=== PATIENT | female | born 1945 | race Hispanic/Latino ===

== ENCOUNTER 2017-04-29 18:42 | Inpatient (IN) | payer MEDICARE, OTHER ==
[~2017-04-29] VITALS: Ht 157.5 cm; Wt 56.9 kg
[~2017-04-29 18:42] MED LIST: PANCRELIPASE 51 EACH PO; PANTOPRAZOLE SO40 MG PO; Z.0.CENTRUM SILVER1 PO; Z.0.NEXIUM40 MG PO; [UNRECOGNIZED DRUG - CODE] PO
--- OUTSIDE RECORDS SUMMARY | 2017-04-29 18:45 | XMS REPORT | Clinical Summary ---
Author Author [facility] Address Unknown Phone Unavailable Care Team Providers Care Navigation Teacher Name Role Phone Catherine Donis MD PCP Allergies Active Allergy Reactions Severity Noted Date Comments Cefazolin 04/02/2016 Penicillins 04/02/2016 Current Medications Prescription Sig. Disp. Refills Start End Date Status Date multivitamins & Take by mouth daily. Active minerals-ferrous gluconate 9 mg iron/15 mL liquid Ca carb-D3-mag Take by mouth. Active ox-bwi-aoqs-Zn (CALTRATE + D3 PLUS MINERALS) 300 mg-800 unit -25 mg-0.5 mg tablet Bacillus coagulans Take by mouth. Active (PROBIOTIC, B. COAGULANS,) 10 billion cell capsule,delayed release(DR/EC) ciprofloxacin (CIPRO) 500 Take 500 mg by mouth 3 Active MG tablet (three) times a week. ZENPEP 5,000-17,000 07/13/19 Active -27,000 unit 17 capsule,delayed release(DR/EC) traMADol (ULTRAM) 50 mg Take 50 mg by mouth every 08/30/19 Discontin tablet 6 (six) hours as needed. 17 ued predniSONE (DELTASONE) 20 Take 1 tablet (20 mg 20 tablet 0 08/30/19 09/09/19 mg tablet total) by mouth 2 (two) 17 17 times a day for 10 days. Active Problems Problem Noted Date Right carpal tunnel syndrome 03/27/2017 Overview: EMG/NCS 11/06/16. Complex regional pain syndrome type 2 of right upper extremity 11/01/2016 Closed displaced fracture of base of fifth metacarpal bone 03/28/2016 Encounters Date Type Specialty Care Team Description 08/29/2016 Office Visit Orthopedic Surgery Kiki Palma MD Right shoulder pain, unspecified chronicity (Primary Dx); Complex regional pain syndrome type 1 of right upper extremity 05/15/2016 Office Visit Orthopedic Surgery Silvestre Banks MD Closed displaced fracture of base of fifth metacarpal bone of right hand with routine healing, subsequent encounter (Primary Dx) 05/01/2016 Office Visit Orthopedic Surgery Silvestre Banks MD Closed displaced fracture of base of fifth metacarpal bone of right hand with routine healing, subsequent encounter (Primary Dx) after 04/28/2016 Social History Tobacco Use Types Packs/Day Years Used Date Never Smoker Sex Assigned at Date Recorded Not on file Last Filed Vital Signs Vital Sign Reading Time Taken Blood Pressure - - Pulse - - Temperature - - Respiratory Rate - - Oxygen Saturation - - Inhaled Oxygen - - Concentration Weight 53.5 kg (118 lb) 08/29/2016 2:03 PM CDT Height 157.5 cm (5' 2") 08/29/2016 2:03 PM CDT Body Mass Index 21.58 08/29/2016 2:03 PM CDT Plan of Treatment Health Maintenance Due Date Last Done Comments COLONOSCOPY 02/19/1994 MAMMOGRAM 02/19/1994 ZOSTER VACCINE 2004 PNEUMOCOCCAL 02/19/2009 POLYSACCHARIDE VACCINE AGE 65 AND OVER PNEUMOCOCCAL-13 02/19/2009 INFLUENZA VACCINE 09/11/2016 Procedures Procedure Name Priority Date/Time Associated Diagnosis Comments MA ARTHROCENTESIS Routine 08/29/2016 Complex regional pain Results for this ASPIR&/INJ MAJOR JT/BURSA 2:49 PM CDT syndrome type 1 of right procedure are in the W/O US upper extremity results section. after 04/28/2016 Results * Large Joint Arthrocentesis (08/29/2016 2:49 PM) Narrative Kiki Palma MD 08/29/20162:49 PM Large Joint Arthrocentesis Supporting Documentation Indications: pain Procedure Details Location: shoulder - R glenohumeral Right side: Approach: superior Right shoulder medications administered: 6 mg betamethasone acet,sod phos 6 mg/mL; 2 mL lidocaine 10 mg/mL (1 %) (The patient will apply ice to the injected area today and use OTC meds as needed for injection pain. We discussed potential risks to include infection, pain, ineffectuality, fat atrophy, skin pigmentation loss, and need for more treatment.) * XR Shoulder 2+ Vw Right (08/29/2016 2:16 PM) Specimen Performing Laboratory [facility] [address] [place] [address] Narrative Radiographs of the right shoulder, 3 views, AP, Y and axillary lateral views: No fracture, no dislocation, normal alignment, preserved glenohumeral joint space, no pathologic lesion, no greater tuberosity cysts, preserved acromiohumeral interval, type II acromion, AC joint degenerative changes * XR Hand 3+ Vw Right (05/15/2016 11:12 AM) Only the most recent of 2 results within the time period is included. Specimen Per[facility] [address] [place] [address] Narrative PA, lateral, oblique x-rays are done of the right hand demonstrate a healed fracture of the right fifth metacarpal base.This fracture is in satisfactory position. after 04/28/2016 Insurance Payer Benefit Subscriber ID Type Phone Address Plan / Group MEDICARE MEDICARE xxxxxxxxxx Medicare [place], [place] PART A AND B xxxxxxxxx [place] [address]
--- OUTSIDE RECORDS SUMMARY | 2017-04-29 18:45 | XMS REPORT ---
Author Author [facility] Address Unknown Phone Unavailable Care Team Providers Care Fire Alarm Operator Name Role Phone DEJUAN WESTBROOK Unavailable Unavailable ROSALES NICHOLSON Unavailable Unavailable Problems This patient has no known problems. Allergies, Adverse Reactions, Alerts This patient has no known allergies or adverse reactions. Medications This patient has no known medications. Results Test Description Test Time Test Comments Text Results Atomic Results Result Comments CHEST 2 VIEWS [place] [address] Patient Name: DEYVI KHAN MR #: [id number] : 1945 Age/Sex: 71/F Req #: [id number] Adm Physician: Ordered by: DEJUAN WESTBROOK MD Report #: [id number] Location: ER Room/Bed: Procedure: [id number] DX/CHEST 2 VIEWS Exam Date: Exam Time: REPORT STATUS: Signed EXAMINATION: Chest, CHEST 2 VIEWS INDICATION : Cough. COMPARISON: Chest 2 views 01/26/2014 FINDINGS: LINES: None. Heart: Normal cardiac silhouette. Vascular: The pulmonary vasculature is within normal limits. Atherosclerotic calcifications of the aortic arch. Mediastinum: No mediastinal, hilar, or axillary mass or lymphadenopathy. Lungs: No parenchymal mass. No focal consolidation. Bibasilar atelectasis. Pleura: No pleural effusion. No pneumothorax. Bones: No acute osseous abnormality. Degenerative changes of the thoracic spine. Soft tissues: Normal. Impression: No acute radiographic abnormality. Signed by: Dr. Radha Damico M.D. on 2016 5:58 PM Dictated By: RADHA DAMICO MD 57 Transcribed By: LANCE on 11/11/161757 COPY TO: DEJUAN WESTBROOK MD CT ABDOMEN/PELVIS WOW [place] [address] Patient Name: DEYVI KHAN MR #: [id number] : 1945 Age/Sex: 71/F Req #: [id number] Adm Physician: Ordered by: ROSALES NICHOLSON MD Report #: [id number] Location: CT Room/Bed: __ Procedure: [id number] CT/CT ABDOMEN/PELVIS WOW Exam Date: 09/28/16 Exam Time: 1310 REPORT STATUS: Signed PROCEDURE: CT ABDOMEN T PELVIS W/WO CONTRAST TECHNIQUE: The abdomen and pelvis were scanned utilizing a multidetector helical scanner from the diaphragm to the lesser trochanter before and after the IV administration of 100 cc of Isovue 370 and the oral administration of water. Coronal and sagittal multiplanar reformations were obtained. COMPARISON: [facility], CT, CT ABDOMEN T PELVIS W/WO CONTRAST, 01/13/2009, 17:37. [facility], CT, CT ABDOMEN AND PELVIS WITH CONTRAST, 03/16/2010, 10:54. [facility], CT, CT ABDOMEN/PELVIS WOW, 01/16/2013, 9: 02. [facility], CT, CT ABDOMEN/PELVIS WOW, 01/26/2014, 8:55. [facility], CT, CT ABDOMEN/PELVIS W, 09/28/2015, 10:31. INDICATIONS: History of pancreatic cancer in 2009 status post distal pancreatectomy. Weight loss, appetite loss and abdominal pain for 3 weeks FINDINGS: LOWER THORAX: Stable linear opacity in the posterior left lower lobe, technology assistant with scarring. Lung bases are otherwise clear. Atherosclerotic calcification of the coronary arteries.. HEPATOBILIARY: Normal hepatic size and contour. No focal hepatic lesions. The no intrahepatic biliary ductal dilation. Stable mild prominence of the common bile duct, which measures approximately 9 mm at the june hepatis. No intraluminal filling defects. Cholecystectomy clips. 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 PANCREAS: Stable postoperative changes of distal pancreatectomy. Remaining pancreatic head and uncinate process are unremarkable, without ductal dilation, focal lesion, peripancreatic stranding or well defined fluid collections. No abnormal calcifications. ADRENALS: No adrenal nodules. KIDNEYS/URETERS: Symmetrical renal enhancement. No hydronephrosis, stones, or solid mass lesions. PELVIC ORGANS/BLADDER: Bladder is unremarkable. No focal lesions or wall thickening. Uterus is absent. No adnexal masses.. PERITONEUM / RETROPERITONEUM: No free air or fluid. LYMPH NODES: No lymphadenopathy. VESSELS: Celiac trunk, superior and inferior mesenteric, and bilateral renal arteries are patent. Portal, superior mesenteric veins are patent. GI TRACT: Visualized bowel shows no dilation or obstruction. No wall thickening. Stomach is unremarkable. Scattered diverticula in the distal descending and sigmoid colon, without diverticulitis. BONES AND SOFT TISSUES: No acute bony abnormalities. No lytic lesions. Soft tissues are grossly unremarkable. IMPRESSION: 1. No acute abdominopelvic abnormalities. 2. Stable postoperative changes of distal pancreatectomy, without CT evidence of recurrent or metastatic pancreatic neoplasm. 3. Stable mild dilation of the common bile duct, likely reflecting post cholecystectomy status. Fany Morales M.D. Dictated by: aFny Morales M.D. on 09/28/2016 at 14:50 Electronically approved by: Fany Morales M.D. on 09/28/2016 at 14:50 Dictated By: FANY MORALES MD [id number] Transcribed By: GENARO on 09/28/16 1450 COPY TO: ROSALES NICHOLSON MD
[2017-04-29] MEDS ORDERED: ONDANSETRON HCL INJ 2 MG/ML VIAL IV STA (19:54)
[2017-04-29] MEDS ORDERED: DIATRIZOATE MEGL/DIATRIZOA SOD 30 ML BTL PO ONE (20:08)
[2017-04-29 20:15] LABS: BASOPHILS % 0.2 % (0.0-1.0); EOSINOPHILS # (AUTO) 0.2 (0.0-0.4); EOSINOPHILS % 1.3 % (0.0-6.0); HEMATOCRIT 43.5 % (34.2-44.1); HEMOGLOBIN 14.7 g/dL (12.0-16.0); LYMPHOCYTES # (AUTO) 2.7 (1.0-3.2); LYMPHOCYTES % 22.9 % (18.0-39.1); MEAN CORPUSCULAR HGB CONC 33.8 g/dL (31-35); MEAN CORPUSCULAR VOLUME 88.8 fL (81-99); MONOCYTES # (AUTO) 0.8 (0.2-0.8); MONOCYTES % 6.8 % (4.4-11.3); NEUTROPHILS % 68.6 % (38.7-80.0); PLATELET COUNT 444 x10e3/uL (140-360); RED CELL DISTRIBUTION WIDTH 13.3 % (11.7-14.4)
[2017-04-29 20:34] LABS: ALANINE AMINOTRANSFERASE 13 IU/L (0-55); ALKALINE PHOSPHATASE 132 IU/L (40-150); AMYLASE 66 U/L (25-125); ANION GAP 14.2 mmol/L (8-16); BLOOD UREA NITROGEN 19 mg/dL (7-26); BUN/CREATININE RATIO 27 (6-25); CALCIUM 10.4 mg/dL (8.4-10.2); CARBON DIOXIDE 28 mmol/L (22-29); CHLORIDE 100 mmol/L (98-107); EST GLOMERULAR FILTRATION RATE > 60 ML/MIN (60-); GLUCOSE 111 mg/dL (74-118); LIPASE 9 U/L (8-78); POTASSIUM 4.2 mmol/L (3.5-5.1); SODIUM 138 mmol/L (136-145)
[2017-04-29] MEDS ORDERED: SODIUM CHLORIDE 0.9% 50ML 50 ML ONE (21:00)
[2017-04-29] MEDS ORDERED: IOPAMIDOL 370 MG/ML 200 ML INFUS..BTL INJ ONE (21:00)
--- NOTE | 2017-04-29 21:39 | Diagnostic Imaging Report ---
EXAM: CT ABDOMEN AND PELVIS with IV CONTRAST DATE: 04/29/2017 7:54 PM Time stamp on Exam: 2104 hours INDICATION: Mid abdominal pain and history of pancreatic cancer COMPARISON: CT of the abdomen September 28, 2016 TECHNIQUE: The abdomen and pelvis were scanned using a multidetector helical scanner. Coronal and sagittal reformations were obtained. Routine protocol performed. IV Contrast: 100 cc Isovue-370 Oral Contrast: Gastrografin CTDIvol has been reviewed. It is below the limits set by the Radiation Protocol Committee (RPC). FINDINGS: LOWER THORAX: No consolidations LIVER: No masses BILIARY: Cholecystectomy. Stable mild dilation of the common bile duct to 8 mm. SPLEEN: Splenectomy PANCREAS: Partial pancreatectomy of the body and tail. Stable appearance of the pancreatic head without evidence of a mass. ADRENALS: No nodules KIDNEYS: Symmetric perfusion. No enhancing masses. No hydronephrosis. GI TRACT: There are mildly distended loops of small bowel, with scattered areas of bowel wall thickening. Fluid-filled ascending colon. VESSELS: Mild atherosclerotic changes of the abdominal aorta without aneurysm. PERITONEUM/RETROPERITONEUM: No free air or fluid LYMPH NODES: Stable mildly prominent right external iliac chain lymph node measuring 1 cm in short diameter. REPRODUCTIVE ORGANS: The uterus and ovaries are not visualized. BLADDER: Unremarkable SOFT TISSUES: Unremarkable BONES: No suspicious bone lesions. IMPRESSION: Appearance of small and large bowel suggests enterocolitis. Surgical changes of partial pancreatectomy, cholecystectomy and splenectomy. No evidence of metastatic disease. Signed by: Dr. Nury Starkey M.D. on 04/29/2017 9:35 PM
[2017-04-29 22:49] LABS: BILIRUBIN,URINE NEGATIVE (NEGATIVE); CLARITY,URINE CLEAR (CLEAR); COLOR,URINE YELLOW (YELLOW); KETONES,URINE NEGATIVE (NEGATIVE); LEUKOCYTE ESTERASE ,URINE NEGATIVE (NEGATIVE); NITRITE,URINE NEGATIVE (NEGATIVE); PROTEIN,URINE DIPSTICK NEGATIVE (NEGATIVE); URINE UROBILINOGEN 0.2 mg/dL (0.2 - 1)
[2017-04-29 23:00] LABS: BACTERIA,URINE RARE /HPF; EPITHELIAL CELLS,URINE RARE /LPF; RBC,URINE 21-50 /HPF (0-5); WBC,URINE (MAN) 0-5 /HPF (0-5)
[2017-04-29] MEDS ORDERED: LEVOFLOXACIN 500MG/D5W 100ML IV SCH (23:15)
[2017-04-29] MEDS ORDERED: MORPHINE SULFATE 2 MG/ML SYR IV PRN (23:15)
[2017-04-29] MEDS ORDERED: SODIUM CHLORIDE 0.9% 1000ML 1,000 ML ONE (23:29)
[2017-04-29] MEDS: METRONIDAZOLE 500MG/NS 100ML IV SCH (23:31)
[2017-04-29] MEDS: SODIUM CHLORIDE 0.9% 1000ML 1,000 ML IV SCH (23:31)
--- OUTSIDE RECORDS SUMMARY | 2017-04-30 00:14 | XMS REPORT | Clinical Summary ---
Author Author [facility] Address Unknown Phone Unavailable Care Team Providers Care Obstetrician/Gynecologist Name Role Phone Catherine Donis MD PCP Allergies Active Allergy Reactions Severity Noted Date Comments Cefazolin 04/02/2016 Penicillins 04/02/2016 Current Medications Prescription Sig. Disp. Refills Start End Date Status Date multivitamins & Take by mouth daily. Active minerals-ferrous gluconate 9 mg iron/15 mL liquid Ca carb-D3-mag Take by mouth. Active ev-bnw-imru-Zn (CALTRATE + D3 PLUS MINERALS) 300 mg-800 [...] routine healing, subsequent encounter (Primary Dx) after 04/29/2016 Social History Tobacco Use Types Packs/Day Years [...] Procedure Name Priority Date/Time Associated Diagnosis Comments [place] ARTHROCENTESIS Routine 08/29/2016 Complex regional pain Results for this ASPIR&/INJ MAJOR JT/BURSA 2:49 PM CDT syndrome type 1 of right procedure are in the W/O US upper extremity results section. after 04/29/2016 Results * Large Joint Arthrocentesis (08/29/2016 2:49 [...] Right (08/29/2016 2:16 PM) Specimen Performing Laboratory [facility] [address] [place] [address] Narrative Radiographs of the right shoulder, 3 [...] time period is included. Specimen Performing Laboratory [facility] [address] [place] [address] Narrative PA, lateral, oblique x-rays are done of the right hand demonstrate a healed fracture of the right fifth metacarpal base.This fracture is in satisfactory position. after 04/29/2016 Insurance Payer Benefit Subscriber ID Type Phone Address Plan / Group MEDICARE MEDICARE xxxxxxxxxx Medicare [place], [place] PART A AND B x[place] [address]
[2017-04-30] MEDS: ONDANSETRON HCL INJ 2 MG/ML VIAL IV PRN ×3 (00:36→22:11)
[2017-04-30] MEDS ORDERED: CIPRO500 MG PO (02:56)
[2017-04-30] MEDS: METRONIDAZOLE 500MG/NS 100ML IV SCH ×3 (06:40→17:30)
[2017-04-30 08:00] VITALS: BP 99/46
[2017-04-30] MEDS ORDERED: HYDROCODONE/APAP 5MG-325MG TAB PO PRN (09:15)
[2017-04-30 09:22] VITALS: BP 99/46
[2017-04-30 09:41] LABS: BASOPHILS % 0.3 % (0.0-1.0); EOSINOPHILS # (AUTO) 0.1 (0.0-0.4); EOSINOPHILS % 0.9 % (0.0-6.0); HEMATOCRIT 35.4 % (34.2-44.1); LYMPHOCYTES # (AUTO) 2.8 (1.0-3.2); LYMPHOCYTES % 28.5 % (18.0-39.1); MEAN CORPUSCULAR HEMOGLOBIN 30.5 pg (28-32); MEAN CORPUSCULAR HGB CONC 33.9 g/dL (31-35); MEAN CORPUSCULAR VOLUME 89.8 fL (81-99); MONOCYTES # (AUTO) 0.7 (0.2-0.8); MONOCYTES % 7.2 % (4.4-11.3); NEUTROPHILS # (AUTO) 6.2 (2.1-6.9); NEUTROPHILS % 62.9 % (38.7-80.0); PLATELET COUNT 381 x10e3/uL (140-360); RED BLOOD COUNT 3.94 x10e6/uL (3.6-5.1); RED CELL DISTRIBUTION WIDTH 13.3 % (11.7-14.4)
[2017-04-30] MEDS: SODIUM CHLORIDE 0.9% 1000ML 1,000 ML IV SCH (09:50)
[2017-04-30 10:09] LABS: ALANINE AMINOTRANSFERASE 16 IU/L (0-55); ALBUMIN 3.1 g/dL (3.5-5.0); ALKALINE PHOSPHATASE 105 IU/L (40-150); ANION GAP 10.8 mmol/L (8-16); BLOOD UREA NITROGEN 14 mg/dL (7-26); BUN/CREATININE RATIO 24 (6-25); CALCIUM 8.5 mg/dL (8.4-10.2); CARBON DIOXIDE 25 mmol/L (22-29); CHLORIDE 104 mmol/L (98-107); CREATININE, SERUM 0.59 mg/dL (0.57-1.11); EST GLOMERULAR FILTRATION RATE > 60 ML/MIN (60-); GLUCOSE 117 mg/dL (74-118); POTASSIUM 3.8 mmol/L (3.5-5.1); SODIUM 136 mmol/L (136-145)
--- NOTE | 2017-04-30 10:58 | History and Physical ---
Cris López is a 72-year-old female who presented with abdominal pain, nausea, and subsequently was seen in the ER, and subsequently admitted for further evaluation and treatment. HISTORY OF PAST ILLNESSES: History of having had a Whipple procedure in 2010. The patient had cancer of the pancreas. The patient has remained in complete remission now for 7 years. The patient had postoperative adjuvant chemotherapy. SOCIAL HISTORY: Noncontributory. FAMILY HISTORY: Noncontributory. ALLERGIES: NONE. MEDICATIONS: At this time consist of: 1. Normal saline. 2. Levaquin. 3. Metronidazole. 4. Tylenol with codeine. REVIEW OF SYSTEMS HEENT: Normal. CARDIAC: Normal. RESPIRATORY: Normal. GI: History of cancer of the pancreas for which she had Whipple procedure in 2010. PHYSICAL EXAMINATION GENERAL: A moderately developed female. NECK: No palpable adenopathy. HEART: Within normal limits. LUNGS: Clear. ABDOMEN: Obese. Midline scar of surgery seen. RECTAL: Vaginal examination deferred. BUILDING ILLUMINATING ENGINEER: Essentially normal. EXTREMITIES: Essentially normal. CBC shows a slightly high white count of 11,600 and slightly high platelets of 444,000. Chemistry is essentially normal with normal amylase of 66 and normal lipase of 9. The patient's imaging shows a CT scan of the abdomen which shows the patient to have small and large bowel enterocolitis. IMPRESSION 1. Status post Whipple procedure for cancer of the pancreas in 2010, in complete remission. 2. Postoperative adjuvant chemotherapy. 3. Leukocytosis. 4. Enterocolitis. PLAN: Have surgical and GI consultation. Aggressive antibiotic therapy, hydration, antiemetics, pain medications. ROSALES NICHOLSON MD Job#: [id number] [place]
[2017-04-30] MEDS ORDERED: SODIUM CHLORIDE 0.9% 500ML 500 ML IV ONE (11:15)
[2017-04-30 12:00] VITALS: BP 109/61
[2017-04-30] MEDS: POTASSIUM CHLORIDE 10 MEQ in DEXTROSE 5%/0.45% SOD CHL 1,000 ML IV SCH (12:12)
[2017-04-30] MEDS: HYDROMORPHONE 1MG/1ML INJ IV PRN ×2 (14:21→22:11)
[2017-04-30 16:00] VITALS: BP 98/60
[2017-04-30 19:30] VITALS: BP 110/68
[2017-04-30] MEDS: LEVOFLOXACIN 500MG/D5W 100ML 100 ML IV SCH (22:03)
[2017-04-30] MEDS: METRONIDAZOLE 500MG/NS 100ML 100 ML IV SCH (23:45)
[2017-05-01] VITALS (8 sets, daily range): BP systolic 123–153; BP diastolic 57–77
[2017-05-01] MEDS ORDERED: ONDANSETRON HCL INJ 2 MG/ML VIAL IV STA (00:35)
[2017-05-01] MEDS: POTASSIUM CHLORIDE 10 MEQ in DEXTROSE 5%/0.45% SOD CHL 1,000 ML IV SCH ×2 (01:24→14:55)
[2017-05-01] MEDS: HYDROMORPHONE 1MG/1ML INJ IV PRN ×2 (04:32→15:12)
[2017-05-01] MEDS: ONDANSETRON HCL INJ 2 MG/ML VIAL IV PRN ×2 (04:32→15:13)
[2017-05-01] MEDS: METRONIDAZOLE 500MG/NS 100ML 100 ML IV SCH ×3 (05:52→18:03)
--- NOTE | 2017-05-01 07:30 | Diagnostic Imaging Report ---
PROCEDURE:ABDOMEN ACUTE SERIES W/PA CXR COMPARISON:CT abdomen and pelvis 04/29/2017. INDICATIONS:ABDOMEN PAIN FINDINGS: CHEST: Lungs are well-expanded and without focal consolidation, pleural effusion, or pneumothorax. Tortuosity and atherosclerotic calcification of the thoracic aorta. Normal heart size. No overt pulmonary edema. BOWEL PATTERN: Interval migration of enteric contrast material ingested for CT abdomen and pelvis 04/29/2017 to the colon. Mild dilatation of several loops of small bowel in the midabdomen to a maximum caliber of 3.5 cm. Multiple sigmoid diverticula. No adrianna pneumoperitoneum on the upright radiograph. Surgical clips related to prior cholecystectomy. SOFT TISSUES: No focal findings. BONES: No acute osseous abnormality. CONCLUSION: No acute cardiopulmonary abnormality. Interval migration of enteric contrast material to the colon with mild nonspecific small bowel dilatation. No pneumoperitoneum. Dictated by: Daniel Jang M.D. on 05/01/2017 at 7:31 Electronically approved by: Daniel Jang M.D. on 05/01/2017 at 7:31
[2017-05-01] MEDS: PROMETHAZINE 12.5MG/ NACL 0.9% 12.5 MG/50 ML BAG IV PRN (19:39)
[2017-05-01] MEDS: LEVOFLOXACIN 500MG/D5W 100ML 100 ML IV SCH (23:00)
[2017-05-02] VITALS: BP 111/53
[2017-05-02] MEDS: POTASSIUM CHLORIDE 10 MEQ in DEXTROSE 5%/0.45% SOD CHL 1,000 ML IV SCH ×2 (00:59→17:43)
[2017-05-02 04:00] VITALS: BP 126/58
[2017-05-02 08:00] VITALS: BP 125/61
--- NOTE | 2017-05-02 14:58 | Diagnostic Imaging Report ---
PROCEDURE: X-RAY UPPER GI SERIES WITH SMALL BOWEL FOLLOW-THROUGH TECHNIQUE:Multiple fluoroscopic spot images were acquired during the dynamic evaluation of the esophagus, stomach, and duodenum after the administration of effervescent crystals and thin and thick barium. The images were obtained in the upright and supine positions from multiple obliquities. Additional oral contrast was administered. Serial overhead images were acquired. Spot compression images of the distal small bowel and cecum were obtained. COMPARISON: CT abdomen and pelvis 04/29/2017. INDICATIONS: ABDOMEN PAIN/SMALL BOWEL OBSTRUCTION FINDINGS: ESOPHAGUS: Motility: Within normal limits. Mucosa: Unremarkable. Distensibility: Normal. GASTROESOPHAGEAL JUNCTION: No evidence of hiatal hernia. GASTROESOPHAGEAL REFLUX: None observed. STOMACH: Normally distensible and demonstrates normal contours and mucosal pattern. DUODENUM: Bulb and sweep are normal. Duodenal-jejunal junction is in the normal expected position. SMALL BOWEL FOLLOW THROUGH: Small bowel loops are normal in caliber and distribution. Spot compression views of the terminal ileum are normal. The transit time was normal. IMPRESSION: No acute radiographic abnormality. Dictated by: Ricki Santana M.D. on 05/02/2017 at 14:58 Electronically approved by: Ricki Santana M.D. on 05/02/2017 at 14:58
[2017-05-02] MEDS: HYDROMORPHONE 1MG/1ML INJ IV PRN (15:20)
[2017-05-02] MEDS: PROMETHAZINE 12.5MG/ NACL 0.9% 12.5 MG/50 ML BAG IV PRN ×2 (15:20→15:59)
[2017-05-02 16:00] VITALS: BP 141/66
[2017-05-02] MEDS: LEVOFLOXACIN 500MG/D5W 100ML 100 ML IV SCH (23:30)
[2017-05-03] VITALS (7 sets, daily range): BP systolic 107–134; BP diastolic 55–74
[2017-05-03] MEDS: POTASSIUM CHLORIDE 10 MEQ in DEXTROSE 5%/0.45% SOD CHL 1,000 ML IV SCH ×2 (01:08→01:09)
[2017-05-03] MEDS ORDERED: MAGNESIUM HYDROXIDE 30 ML UDC PO ONE (02:00)
[2017-05-03] MEDS ORDERED: LIDOCAINE HCL 2% LOCAL INJ 5 ML SDV VIAL INJ ONE (13:49)
[2017-05-03] MEDS ORDERED: EPHEDRINE SULFATE INJ 50 MG/10 ML SYR ONE (13:49)
[2017-05-03] MEDS ORDERED: PROPOFOL IV EMULSION 10 MG/ML 50 ML VIAL ONE (13:49)
[2017-05-03] MEDS ORDERED: PANTOPRAZOLE 40 MG 10ML VIAL IV STA (14:58)
--- NOTE | 2017-05-03 15:11 | Operative Report ---
DATE OF PROCEDURE: May 03, 2017 REFERRING PHYSICIANS: Dr. Chris Donis and Dr. Osmar Barrera. PROCEDURE PERFORMED: Esophagogastroduodenoscopy with biopsies. INDICATIONS FOR ESOPHAGOGASTRODUODENOSCOPY: Upper abdominal pain, nausea and vomiting. MEDICATION: Patient was done under MAC. Please see anesthesiologist's note. PROCEDURE: With the patient in the left lateral decubitus position, the flexible fiberoptic Olympus gastroscope was introduced into the esophagus under direct visualization without any difficulty. The esophagus appeared to be within normal limits. A moderate-sized hiatal hernia was traversed with ease, and the scope was advanced into the stomach. There was some patchy erythema noted overlying both the antrum and the body. An approximately 4 mm ulcer was noted in the distal antrum along the posterior wall without any active bleeding or stigmata or recent hemorrhage. The pylorus was of normal contour and shape, was intubated with ease, and the scope was advanced all the way to the 2nd portion of the duodenum. The scope was then withdrawn slowly, and minute ulcers were noted in the proximal 2nd portion as well as the duodenal bulb without active bleeding or stigmata of recent hemorrhage. The scope was then withdrawn back into the stomach and retroflexed, and the mucosa overlying the fundus and the cardia appeared to be within normal limits. The scope was then straightened out. The stomach was decompressed. The scope was subsequently withdrawn. Patient tolerated the procedure well. IMPRESSION: 1. Normal esophagus. 2. Moderate-sized hiatal hernia. 3. Gastritis. 4. Gastric ulcer, antrum, approximately 4 mm in size without active bleeding or stigmata of recent hemorrhage. 5. Duodenal ulcers, multiple, bulb and proximal 2nd portion without active bleeding. PLAN: Follow up histology. Initiate Protonix 40 mg 1 p.o. q.a.m. a.c. Job#: [id number] EV cc:MD OSMAR TRAYLOR MD
[2017-05-03] MEDS: PANTOPRAZOLE 40 MG 10ML VIAL IV SCH (17:00)
[2017-05-03] MEDS: LEVOFLOXACIN 500MG/D5W 100ML 100 ML IV SCH (23:20)
[2017-05-04] VITALS: BP 119/92
[2017-05-04 04:00] VITALS: BP 117/57
[2017-05-04 07:39] VITALS: BP 117/57
[2017-05-04] MEDS: PANTOPRAZOLE 40 MG 10ML VIAL IV SCH ×2 (09:00→16:14)
[2017-05-04] MEDS: POTASSIUM CHLORIDE 10 MEQ in DEXTROSE 5%/0.45% SOD CHL 1,000 ML IV SCH ×2 (09:24→22:27)
[2017-05-04] MEDS ORDERED: HYDROMORPHONE 1MG/1ML INJ IV PRN (16:15)
[2017-05-04] MEDS ORDERED: ACETAMINOPHEN 325 MG TAB PO PRN (16:15)
[2017-05-04 19:40] VITALS: BP 142/66
[2017-05-04] MEDS: LEVOFLOXACIN 500MG/D5W 100ML 100 ML IV SCH (22:26)
[2017-05-05 00:05] VITALS: BP 126/58
[2017-05-05 04:15] VITALS: BP 121/58
[2017-05-05 06:08] LABS: BASOPHILS # (AUTO) 0.1 (0.0-0.1); BASOPHILS % 0.7 % (0.0-1.0); EOSINOPHILS # (AUTO) 0.6 (0.0-0.4); HEMATOCRIT 35.9 % (34.2-44.1); HEMOGLOBIN 12.2 g/dL (12.0-16.0); LYMPHOCYTES # (AUTO) 2.6 (1.0-3.2); LYMPHOCYTES % 37.8 % (18.0-39.1); MEAN CORPUSCULAR HEMOGLOBIN 30.4 pg (28-32); MEAN CORPUSCULAR VOLUME 89.5 fL (81-99); MONOCYTES # (AUTO) 0.6 (0.2-0.8); MONOCYTES % 8.5 % (4.4-11.3); NEUTROPHILS % 43.3 % (38.7-80.0); PLATELET COUNT 447 x10e3/uL (140-360); RED BLOOD COUNT 4.01 x10e6/uL (3.6-5.1); RED CELL DISTRIBUTION WIDTH 13.2 % (11.7-14.4)
[2017-05-05 06:26] LABS: ANION GAP 13.7 mmol/L (8-16); BLOOD UREA NITROGEN < 5 mg/dL (7-26); CALCIUM 9.1 mg/dL (8.4-10.2); CARBON DIOXIDE 25 mmol/L (22-29); CHLORIDE 108 mmol/L (98-107); CREATININE, SERUM 0.61 mg/dL (0.57-1.11); EST GLOMERULAR FILTRATION RATE > 60 ML/MIN (60-); GLUCOSE 141 mg/dL (74-118); POTASSIUM 4.7 mmol/L (3.5-5.1); SODIUM 142 mmol/L (136-145)
[2017-05-05 06:36] LABS: BUN/CREATININE RATIO 8 (6-25)
[2017-05-05 07:52] VITALS: BP 139/69
[2017-05-05] MEDS: PANTOPRAZOLE 40 MG 10ML VIAL IV SCH ×2 (08:29→17:10)
[2017-05-05] MEDS: POTASSIUM CHLORIDE 10 MEQ in DEXTROSE 5%/0.45% SOD CHL 1,000 ML IV SCH (12:36)
[2017-05-05 19:39] VITALS: BP 121/64
[2017-05-05] MEDS: LEVOFLOXACIN 500MG/D5W 100ML 100 ML IV SCH (22:53)
[2017-05-06 00:20] VITALS: BP 122/56
[2017-05-06 04:20] VITALS: BP 107/52
[2017-05-06] MEDS ORDERED: PANTOPRAZOLE 40 MG 10ML VIAL IV SCH ×2 (07:30→16:30)
[2017-05-06] MEDS ORDERED: VSL#3 DS PACKE1 EACH PO (11:20)
[2017-05-06] MEDS ORDERED: PANTOPRAZOLE SO40 MG PO (11:21)
[2017-05-06 11:30] VITALS: BP 158/82
== END 2017-05-06 13:00 | disposition home or self-care (01) | DRG 392 ==
LOC: ER 18:42 → EDBEDREQ 23:16 → ERHOLD 04-30 00:11 → MED/SURG2 04-30 02:14
PROVIDERS: ADMIT Internal Medicine Medical Oncology; ATTEND Internal Medicine Medical Oncology
PROC: 0DB78ZX Excision of Stomach, Pylorus, Via Natural or Artificial Opening Endoscopic, Diagnostic (ICD-10-PCS; 2017-05-03)
PROC: 0DB68ZX Excision of Stomach, Via Natural or Artificial Opening Endoscopic, Diagnostic (ICD-10-PCS; principal; 2017-05-03 16:00)
DX: K52.9 Noninfective gastroenteritis and colitis, unspecified (principal); K26.9 Duodenal ulcer, unspecified as acute or chronic, without hemorrhage or perforation; K25.9 Gastric ulcer, unspecified as acute or chronic, without hemorrhage or perforation; Z85.07 Personal history of malignant neoplasm of pancreas
CPT/HCPCS: 36415; 43239; 74022; 74177; 74249; 80048; 80053; 81001; 82150; 83690; 85025; 87493; 88305; 88312; 96367; 99284; J1170; J1956; J2001; J2270; J2405; J2550; J3480; J7030; J7040; Q9967

== ENCOUNTER → 2018-01-17 | Outpatient (CLI) | payer MEDICARE, OTHER ==
[~2018-01-17] MED LIST changes: +CIPRO500 MG PO; +IOPAMIDOL 370 MG/ML 200 ML INFUS..BTL INJ ONE; +SODIUM CHLORIDE 0.9% 50ML 50 ML ONE; +VSL#3 DS PACKE1 EACH PO
[2018-01-17 17:26] LABS: BLOOD UREA NITROGEN 18 mg/dL (7-26); BUN/CREATININE RATIO 28 (6-25); CREATININE, SERUM 0.65 mg/dL (0.57-1.11); EST GLOMERULAR FILTRATION RATE > 60 ML/MIN (60-)
--- NOTE | 2018-01-17 21:39 | Diagnostic Imaging Report ---
EXAM: CT ABDOMEN AND PELVIS with IV CONTRAST DATE: 01/17/2018 4:29 PM INDICATION: History of pancreatic cancer, abdominal pain COMPARISON: 04/29/2017 TECHNIQUE: The abdomen and pelvis were scanned using a multidetector helical scanner. Coronal and sagittal reformations were obtained. Routine protocol performed. IV Contrast: 100 cc Isovue-370 Oral Contrast: Gastrografin CTDIvol has been reviewed. It is below the limits set by the Radiation Protocol Committee (RPC). FINDINGS: LOWER THORAX: Minimal left basilar scarring. LIVER: No masses BILIARY: Cholecystectomy. Stable mild dilation of the common bile duct. SPLEEN: Splenectomy PANCREAS: Stable appearance of the pancreatic head status post distal pancreatectomy. ADRENALS: No nodules KIDNEYS: Symmetric perfusion. No enhancing masses. No hydronephrosis. GI TRACT: No evidence of bowel obstruction or wall thickening. Incidental moderate stool burden, diverticulosis and normal appendix. VESSELS: Mild atherosclerotic changes of the abdominal aorta without aneurysm. PERITONEUM/RETROPERITONEUM: No free air or fluid LYMPH NODES: No suspicious adenopathy. REPRODUCTIVE ORGANS: Status post hysterectomy. BLADDER: Unremarkable BONES: No suspicious bone lesions. IMPRESSION: 1. No acute abnormality in the abdomen or pelvis. 2. Stable postsurgical changes without evidence of metastatic disease. Signed by: Dr Indiana Mcintosh MD on 01/17/2018 9:35 PM
== END ==
LOC: CT 16:13
PROVIDERS: ATTEND Surgery
DX: R10.30 Lower abdominal pain, unspecified (principal)
CPT/HCPCS: 36415; 74177; 82565; 84520; Q9967

== ENCOUNTER → 2019-03-12 | Day surgery (SDC) | payer MEDICARE, OTHER ==
[2019-03-06 11:22] LABS: BASOPHILS # (AUTO) 0.1 (0.0-0.1); BASOPHILS % 0.8 % (0.0-1.0); EOSINOPHILS # (AUTO) 0.1 (0.0-0.4); EOSINOPHILS % 0.9 % (0.0-6.0); HEMATOCRIT 38.1 % (34.2-44.1); HEMOGLOBIN 12.8 g/dL (12.0-16.0); LYMPHOCYTES # (AUTO) 3.1 (1.0-3.2); LYMPHOCYTES % 39.9 % (18.0-39.1); MEAN CORPUSCULAR HEMOGLOBIN 30.3 pg (28-32); MEAN CORPUSCULAR HGB CONC 33.6 g/dL (31-35); MEAN CORPUSCULAR VOLUME 90.1 fL (81-99); MONOCYTES # (AUTO) 0.5 (0.2-0.8); MONOCYTES % 6.3 % (4.4-11.3); NEUTROPHILS % 51.7 % (38.7-80.0); PLATELET COUNT 464 x10e3/uL (140-360); RED BLOOD COUNT 4.23 x10e6/uL (3.6-5.1)
[~2019-03-12] MED LIST changes: +FENTANYL CITRATE/PF 100MCG/2 ML INJ ONE; -IOPAMIDOL 370 MG/ML 200 ML INFUS..BTL INJ ONE; +METFORMIN HCL500 MG PO; +MIDAZOLAM HCL 2 MG/2 ML VIAL ONE; +ONE A DAY VITAMIN PO; +PROPOFOL IV EMULSION 10 MG/ML 20 ML VIAL ONE; -SODIUM CHLORIDE 0.9% 50ML 50 ML ONE
[2019-03-12 10:05] VITALS: BP 121/58
== END | disposition home or self-care (01) ==
LOC: OR 06:14
PROVIDERS: ATTEND Surgery
DX: Z12.11 Encounter for screening for malignant neoplasm of colon (principal); K25.3 Acute gastric ulcer without hemorrhage or perforation; K29.80 Duodenitis without bleeding; K44.9 Diaphragmatic hernia without obstruction or gangrene; K57.30 Diverticulosis of large intestine without perforation or abscess without bleeding; E11.9 Type 2 diabetes mellitus without complications; Z88.6 Allergy status to analgesic agent; Z88.0 Allergy status to penicillin; Z01.812 Encounter for preprocedural laboratory examination; Z79.84 Long term (current) use of oral hypoglycemic drugs; Z85.07 Personal history of malignant neoplasm of pancreas
CPT/HCPCS: 36415 ×2; 43235; 45378; 82948; 85025; J2250; J2704; J3010; 43239

== ENCOUNTER 2019-10-08 15:25 | Inpatient (IN) | payer MEDICARE, OTHER ==
[~2019-10-08] VITALS: Ht 157.5 cm; Wt 55.4 kg
[~2019-10-08 15:25] MED LIST changes: -FENTANYL CITRATE/PF 100MCG/2 ML INJ ONE; -MIDAZOLAM HCL 2 MG/2 ML VIAL ONE; -PROPOFOL IV EMULSION 10 MG/ML 20 ML VIAL ONE
[2019-10-08] MEDS ORDERED: ACETAMINOPHEN 325 MG TAB PO STA (16:22)
[2019-10-08] MEDS ORDERED: CLINDAMYCIN 600MG / 50ML 50 ML IV ONE (16:30)
[2019-10-08 17:07] LABS: BILIRUBIN,URINE NEGATIVE (NEGATIVE); CLARITY,URINE SL CLOUDY (CLEAR); COLOR,URINE YELLOW (YELLOW); KETONES,URINE 2+ (NEGATIVE); LEUKOCYTE ESTERASE ,URINE NEGATIVE (NEGATIVE); NITRITE,URINE NEGATIVE (NEGATIVE); PROTEIN,URINE DIPSTICK NEGATIVE (NEGATIVE); URINE UROBILINOGEN 1 mg/dL (0.2 - 1)
--- NOTE | 2019-10-08 17:08 | Emergency Department Note ---
History of Present Illnes History of Present Illness Chief Complaint: General Medicine Complaints History of Present Illness This is a 74 year old female hx of splenectomy and pancreatic cancer in remission c/o f/c ,mild cough for 3 days, temp 101.5 at home. Historian: Patient Arrival Mode: Car Bariatric Physician Required: No Radiation: Reports non-radiation Severity: moderate Onset quality: gradual Duration (how long): day(s) Progression: waxing and waning Chronicity: new Relieving factors: none Exacerbating factors: none Associated symptoms: Reports cough Treatments prior to arrival: none Past Medical/Family History Physician Review I have reviewed the patient's past medical and family history. Any updates have been documented here. Past Medical History Recent Fever: Yes Clinical Suspicion of Infectio: Yes New/Unexplained Change in Ment: No Past Medical History: Cancer, Kidney Stones, GERD Other Medical History: PANCREATIC CANCER Other Surgery: REMOVED PANCREAS SPLEEN REMOVAL Social History Smoking Cessation: Unknown if ever smoked Any Illegal Drug Use: No TB Exposure/Symptoms: No Physically hurt or threatened: No Other Last Tetanus: UTD Any Pre-Existing Lines (PICC,: No Review of Systems Review of Systems Constitutional: Reports no symptoms, Reports fever, Reports malaise, Reports w eakness EENTM: Reports no symptoms Cardiovascular: Reports no symptoms Respiratory: Reports cough Gastrointestinal: Reports no symptoms Genitourinary: Reports no symptoms Musculoskeletal: Reports no symptoms Integumentary: Reports no symptoms Neurological: Reports no symptoms Psychological: Reports no symptoms Endocrine: Reports no symptoms Hematological/Lymphatic: Reports no symptoms Physical Exam Related Data Allergies: Coded Allergies: Penicillins (Verified Allergy, Mild, RASH, SWELLING, 11/11/16) cefazolin (Verified Allergy, Mild, RASH,SWELLING, 11/11/16) morphine (Verified Allergy, Unknown, 04/30/17) PT BP DROPS SIGNIFICANTLY Triage Vital Signs Vital Signs Date Time Temp Pulse Resp B/P (MAP) Pulse Ox O2 Delivery O2 Flow Rate FiO2 10/08/19 16:20 101.2 94 20 157/67 97 Room Air Vital signs reviewed: Yes (fever) Physical Exam CONSTITUTIONAL Constitutional: Present well-developed, Present well-nourished HENT HENT: Present normocephalic, Present atraumatic, Present oropharynx clear/moist, Present nose normal HENT L/R: Present left ext ear normal, Present right ext ear normal EYES Eyes: Reports PERRL, Reports conjunctivae normal NECK Neck: Present ROM normal PULMONARY Pulmonary: Present effort normal, Present breath sounds normal CARDIOVASCULAR Cardiovascular: Present regular rhythm, Present heart sounds normal, Present capillary refill normal, Present normal rate GASTROINTESTINAL Abdominal: Present soft, Present nontender, Present bowel sounds normal GENITOURINARY Genitourinary: Present exam deferred SKIN Skin: Present warm, Present dry MUSCULOSKELETAL Musculoskeletal: Present ROM normal NEUROLOGICAL Neurological: Present alert, Present oriented x 3, Present no gross motor or sensory deficits PSYCHOLOGICAL Psychological: Present mood/affect normal, Present judgement normal Results Laboratory Laboratory Laboratory Tests Test 10/08/19 16:45 10/08/19 16:28 Lab results reviewed: Yes (wbc 17) Imaging Imaging results reviewed: Yes Imaging Comments c/w pneumonia Assessment & Plan Medical Decision Making [facility] covid 19, post splenectomy sepsis, pneumonia Reassessment Reassessment time: 18:20 Reassessment sat 99 percent RA Assessment & Plan Final Impression: (1) Sepsis (2) Pneumonia Depart Disposition: ADMITTED Last Vital Signs Date Time Temp Pulse Resp B/P (MAP) Pulse Ox O2 Delivery O2 Flow Rate FiO2 10/08/19 16:20 101.2 94 20 157/67 97 Room Air Home Meds Reported Medications [One A Day Vitamin] No Conflict Check, 1 TAB PO DAILY 03/06/19 Metformin Hcl (METFORMIN HCL) 500 Mg Tablet, 500 MG PO DAILY, #60 TAB 03/06/19 Medications in the ED Acetaminophen 650 mg ONCE STAT PO ; Start 10/08/19 at 16:22; Stop 10/08/19 at 16:27; Status DC Levofloxacin/ Dextrose 150 ml @ 100 mls/hr ONCE ONCE IV ; Start 10/08/19 at 17 :30; Stop 10/08/19 at 18:59 Clindamycin Phosphate 50 ml @ 50 mls/hr NOW ONCE IV ; Start 10/08/19 at 16:30; Stop 10/08/19 at 17:29 Physician Attestation Provider Attestation moderate sepsis, pneumonia case discused with Dr Donis and PIETRO Soriano MD Oct 08, 2019 17:08
[2019-10-08 17:10] LABS: BASOPHILS # (AUTO) 0.1 (0.0-0.1); BASOPHILS % 0.4 % (0.0-1.0); EOSINOPHILS # (AUTO) 0.1 (0.0-0.4); EOSINOPHILS % 0.6 % (0.0-6.0); HEMATOCRIT 36.7 % (34.2-44.1); LYMPHOCYTES # (AUTO) 2.9 (1.0-3.2); LYMPHOCYTES % 17.1 % (18.0-39.1); MEAN CORPUSCULAR HEMOGLOBIN 29.8 pg (28-32); MEAN CORPUSCULAR HGB CONC 32.7 g/dL (31-35); MEAN CORPUSCULAR VOLUME 91.1 fL (81-99); MONOCYTES # (AUTO) 1.4 (0.2-0.8); MONOCYTES % 8.3 % (4.4-11.3); NEUTROPHILS # (AUTO) 12.5 (2.1-6.9); NEUTROPHILS % 73.2 % (38.7-80.0); PLATELET COUNT 366 x10e3/uL (140-360); RED BLOOD COUNT 4.03 x10e6/uL (3.6-5.1); RED CELL DISTRIBUTION WIDTH 13.3 % (11.7-14.4)
[2019-10-08 17:18] LABS: AMORPHOUS SEDIMENT,URINE MODERATE (FEW); BACTERIA,URINE MANY /HPF; CALCIUM OXALATE CRYSTALS,UR FEW (FEW); EPITHELIAL CELLS,URINE FEW /LPF
[2019-10-08 17:21] LABS: INR 0.95; PROTHROMBIN TIME 13.2 seconds (11.9-14.5)
[2019-10-08 17:22] LABS: PARTIAL THROMBOPLASTIN TIME 30.3 seconds (23.8-35.5)
[2019-10-08] MEDS ORDERED: LEVOFLOXACIN 750MG/D5W 150ML 150 ML IV ONE (17:30)
--- NOTE | 2019-10-08 18:00 | Diagnostic Imaging Report ---
EXAMINATION: CHEST SINGLE (PORTABLE) INDICATION: Sepsis. COMPARISON: None FINDINGS: TUBES and LINES: None. LUNGS: There are nodular opacities at bilateral lung bases. No focal consolidation. PLEURA: No pleural effusion or pneumothorax. HEART AND MEDIASTINUM: The cardiomediastinal silhouette is within normal limits with atherosclerotic calcification of the thoracic aortic knob. BONES AND SOFT TISSUES: No acute osseous lesion. Soft tissues are unremarkable. UPPER ABDOMEN: No free air under the diaphragm. IMPRESSION: Nodular opacities at the bilateral lung bases which may represent atelectasis and/or multifocal pneumonia in the proper clinical setting. Signed by: Jeffrey Lassiter MD on 10/08/2019 5:57 PM
--- OUTSIDE RECORDS SUMMARY | 2019-10-08 18:06 | XMS REPORT | Clinical Summary ---
Author Author [employer] [facility] [employer] Address Unknown Phone Unavailable Care Team Providers Care Rendering Equipment Tender Name Role Phone Chris Donis MD PCP [phone] Allergies Comments Active Allergy Reactions Severity Noted Date Cefazolin 04/02/2016 Penicillins 04/02/2016 Medications End Date Status Medication Sig Dispensed Refills Start Date Active multivitamins & Take by mouth 0 minerals-ferrous daily. gluconate 9 mg iron/15 mL liquid Active Ca carb-D3-mag Take by 0 [id number] (CALTRATE mouth. + D3 PLUS MINERALS) 300 mg-800 unit -25 mg-0.5 mg tablet Active Bacillus coagulans Take by 0 (PROBIOTIC, B. mouth. COAGULANS,) 10 billion cell capsule,delayed release(DR/EC) Active ciprofloxacin (CIPRO) 500 Take 500 mg 0 MG tablet by mouth 3 (three) times a week. Active ZENPEP 5,000-17,000 0 -27,000 unit 7 capsule,delayed release(DR/EC) Active Problems Problem Noted Date Right carpal tunnel syndrome 03/27/2017 Overview: EMG/NCS 11/06/16. Complex regional pain syndrome type 2 of right upper extremity 11/01/2016 Closed displaced fracture of base of fifth metacarpal bone 03/28/2016 Encounters Care Team Description Date Type Specialty Komal Fitzpatrick MD RUE pain 12/10/2018 Documentation Neurology after 10/07/2018 Social History Date Tobacco Use Types Packs/Day Years Used Never Smoker Smokeless Tobacco: Never Used Sex Assigned at Date Recorded Not on file Industry Job Start Date Occupation Not on file Not on file Not on file Travel End Travel History Travel Start No recent travel history available. Last Filed Vital Signs Not on file Plan of Treatment Health Maintenance Due Date Last Done Comments BREAST CANCER SCREENING 02/19/1994 COLONOSCOPY SCREENING 02/19/1994 SHINGLES VACCINES (#1) 02/19/1994 65+ PNEUMOCOCCAL VACCINE 02/19/2009 (1 of 2 - PCV13) INFLUENZA VACCINE 11/12/2019 Results Not on fileafter 10/07/2018 Insurance Type Payer Benefit Subscriber ID Effective Phone Address Plan / Dates Group Medicare MEDICARE MEDICARE xxxxxxxxxx 2009-P [place], PART A AND resent [place] B xxxxxxxxx 2016- FOR LIFE Present MCR SUPPLEMENT [id number] Advance Directives For more information, please contact: [phone] 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
[2019-10-08 18:16] LABS: ALANINE AMINOTRANSFERASE 26 IU/L (0-55); ALBUMIN 3.7 g/dL (3.5-5.0); ALBUMIN/GLOBULIN RATIO 1.1 (0.8-2.0); ALKALINE PHOSPHATASE 120 IU/L (40-150); ANION GAP 17.7 mmol/L (8-16); BLOOD UREA NITROGEN 14 mg/dL (7-26); BUN/CREATININE RATIO 24 (6-25); CALCIUM 9.3 mg/dL (8.4-10.2); CARBON DIOXIDE 23 mmol/L (22-29); CHLORIDE 102 mmol/L (98-107); CREATINE KINASE 41 IU/L (29-168); CREATININE, SERUM 0.58 mg/dL (0.57-1.11); EST GLOMERULAR FILTRATION RATE > 60 ML/MIN (60-); GLUCOSE 105 mg/dL (74-118); POTASSIUM 3.7 mmol/L (3.5-5.1); SODIUM 139 mmol/L (136-145)
[2019-10-08] MEDS ORDERED: ACETAMINOPHEN 325 MG TAB PO PRN (18:30)
[2019-10-08] MEDS ORDERED: DIPHENHYDRAMINE HCL INJ 50 MG/ML VIAL IV PRN (18:30)
[2019-10-08] MEDS ORDERED: ONDANSETRON HCL INJ 2MG/ML 2ML 2 MG/ML VIAL IV PRN (18:30)
--- OUTSIDE RECORDS SUMMARY | 2019-10-08 18:42 | XMS REPORT | Clinical Summary ---
Author Author [employer] [facility] [employer] Address Unknown Phone Unavailable Care Team Providers Care Urogynecology Physician Name Role Phone Chris Donis MD PCP [phone] Allergies Comments Active Allergy Reactions Severity Noted Date Cefazolin 04/02/2016 Penicillins 04/02/2016 Medications End Date Status Medication Sig Dispensed Refills Start Date Active multivitamins & Take by mouth 0 minerals-ferrous daily. gluconate 9 mg iron/15 mL liquid Active Ca carb-D3-mag Take by 0 [id number] (CALTRATE mouth. 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
[2019-10-08] MEDS ORDERED: POLYETHYLENE GLYCOL 3350 17 GM PACK PO PRN (19:45)
[2019-10-08] MEDS ORDERED: METOPROLOL TARTRATE INJ 1 MG/ML VIAL IV PRN (19:45)
[2019-10-08 20:00] VITALS: BP 117/61
[2019-10-08] MEDS: SODIUM CHLORIDE 0.9% 1000ML 1,000 ML IV SCH (20:34)
[2019-10-08] MEDS: AZITHROMYCIN 500MG/NS 250 ML 250 ML IV SCH (20:34)
[2019-10-08] MEDS ORDERED: METFORMIN HCL500 MG PO (20:52)
[2019-10-08] MEDS ORDERED: CREON DR 12,001 EACH PO (20:52)
[2019-10-08 21:00] VITALS: BP 117/61
[2019-10-08] MEDS ORDERED: TEMAZEPAM 15 MG CAP PO PRN (21:00)
[2019-10-08] MEDS ORDERED: ZOLPIDEM TARTRATE 5 MG TAB PO PRN (21:00)
--- NOTE | 2019-10-08 23:17 | History and Physical ---
PRIMARY CARE PHYSICIAN: Dr. Chris Donis. CONSULTING PHYSICIANS: Dr. Chris Donis with Hematology/Oncology as well as Dr. Ruben Pham with Pulmonology. The patient was seen previously at [facility] in 2009 by a railroad track mechanic, Dr. Mitchell and seen previously by lease administration supervisor, Dr. Garrett in June of 2017. CHIEF COMPLAINT: Cough with fever. HISTORY OF PRESENT ILLNESS: The patient is a 74-year-old female with mild cough for 3 days, fever of 101.5 at home and fever of 101.2 in the emergency department. The patient stated in the emergency department that her last dose of Tylenol was at 3 o'clock this morning. She reports frequent infections such as bronchitis, pneumonia, bladder infections since her pancreatic cancer and related pancreatic surgery in 2008. She denies loss of sense of taste or smell. Denies any sick contacts including being around anyone with COVID and her COVID test has come back negative. PAST MEDICAL HISTORY: Pancreatic cancer, which is in remission with postoperative adjuvant chemotherapy; kidney stones; gastroesophageal reflux disease; ulcer/diverticulosis per EGD/colonoscopy done on 03/12/2019, per Dr. Osmar Barrera; gallstone pancreatitis; small bowel obstruction and/or enterocolitis in June of 2017; in December of 2014, she had bronchopneumonia and urinary tract infection. She has a history of hyperlipidemia. She denies any history of diabetes. PAST SURGICAL HISTORY: Per documentation at [facility] on 01/28/2009, she had a radical 80% pancreatectomy with en bloc splenectomy and omentectomy. She denies having any type of Whipple procedure in 2010. On 02/14/2007, she had a rigid sigmoidoscopy, removal of seton, fistulectomy of complex anorectal fistula. In 2007, she had a hemorrhoidectomy. Hysterectomy, bilateral tubal ligation, bladder suspension surgery. Port-A-Cath placement for chemotherapy on 05/30/2010. She had a laparoscopic cholecystectomy. FAMILY HISTORY: Strong family history of coronary artery disease. Her father at age 69 with myocardial infarction, hypertension, diabetes mellitus. The patient's mother at age 82 due to myocardial infarction. Mother also had CVA, CHF, DM, hypertension. Brother at age 47 with myocardial infarction and had diabetes. Another brother had CABG and diabetes. Sister of coronary artery disease and had had open-heart surgery as well as diabetes. Another sister had PCI and diabetes. SOCIAL HISTORY: The patient denies any previous history of tobacco, alcohol, or illicit drug use. She lives with her . 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 ALLERGIES: PENICILLIN AND CEFAZOLIN. SHE HAS QUESTIONABLE ALLERGY TO MORPHINE, PER DOCUMENTATION, HER BLOOD PRESSURE DROPS SIGNIFICANTLY; HOWEVER, PATIENT DENIES REMEMBERING ANY ALLERGY TO MORPHINE. HOME MEDICATIONS: Metformin 250 mg p.o. b.i.d., Alie CAPPS 12,000 unit capsule t.i.d. with meals, one a day vitamin 1 p.o. daily. REVIEW OF SYSTEMS: A 14-point review of systems was completed and the patient denies any problems with eyes, ears, nose, throat, genitourinary, psychiatric, integumentary, cardiovascular, musculoskeletal, allergic/immunological, hematologic/lymphatic systems. CONSTITUTIONAL: Denies any recent weight loss or weight gain. She has been having fever, has had chills at home for the last 3 days, also with malaise and weakness. RESPIRATORY: Complaints of cough, congestion, mild amount of yellow phlegm. Denies wheezes. GASTROINTESTINAL: No abdominal pain. She had nausea on admission, but this has dissipated. She has a loss of appetite. Her last bowel movement was 10/07 this morning. NEUROLOGIC: She had a headache 7 on a scale of 0 to 10 on admission. No headache now. Denies dizziness. ENDOCRINE: No known history of diabetes mellitus. She checks her blood sugar at home every morning, which is usually about 110 mg/dL. PHYSICAL EXAMINATION: VITAL SIGNS: Temperature 99.8, T-max 101.2, pulse 86, blood pressure 118/64, respirations 16, SpO2 of 98% on room air. Height 5 feet 2 inches, weight 125 pounds, BMI 22.86. GENERAL: Supine, wearing a face mask. No acute distress. LUNGS: Clear to auscultation, diminished bases. Respiratory pattern even and unlabored. No supplemental oxygen. HEENT: EOMI. Oropharynx clear. NECK: Supple. No thyromegaly, JVD, or lymphadenopathy noted. CARDIOVASCULAR: Regular rate and rhythm without murmur. Normal saline infusing at 125 mL/hour into her peripheral IV. ABDOMEN: Bowel sounds positive. Soft, nontender. No guarding. EXTREMITIES: With no pitting edema. No clubbing, cyanosis, or notable swelling or signs of DVT. NEUROLOGICAL: GCS 15. Nonfocal. LABORATORY DATA: WBCs 17.04, hemoglobin 12, hematocrit 36.7, platelets 366, neutrophils 73.2%. PT 13.2, INR 0.95, PTT 30.3. Sodium 139, potassium 3.7, chloride 102, CO2 of 23, anion gap 17.7, BUN 14, creatinine 0.58, estimated GFR greater than 60, BUN to creatinine ratio 24, glucose 105, lactic acid 1.3, calcium 9.3, total bilirubin 0.4, AST 25, ALT 26, alkaline phosphatase 120, creatine kinase 41. CK-MB 0.3, troponin I 0.015. Total protein 7.2, albumin 3.7. Urinalysis showed yellow urine with slightly cloudy clarity, pH 6.5, specific gravity 1.025, urine protein negative, glucose negative, ketones 2+, moderate amount of blood, negative for nitrite, negative for leukocyte esterase, negative bilirubin, urobilinogen 1, rbc 6-10, wbc none, epithelial cells few, calcium oxalate crystals few, amorphous sediment moderate, bacteria many, fine granular casts 1-5. Coronavirus PCR collected on 10/07 was negative. Blood cultures x2 and urine culture collected today 10/07, are all pending. On 03/24/2009, TSH was 0.7. On 10/08, TSH, hemoglobin A1c, lipid panel, basic metabolic panel, magnesium, phosphorus, and CBC are all pending. IMAGING/OTHER: Bedside swallow evaluation by Speech Therapy has been ordered and is pending. Physical therapy evaluation is ordered and pending. A 12-lead ECG showed normal sinus rhythm with a heart rate of 80. On 10/07, chest x-ray showed nodular opacities in bilateral lung bases, which may represent atelectasis and/or multifocal pneumonia. ASSESSMENT AND PLAN: 1. Post splenectomy sepsis, present on admission, possibly due to pneumonia. Lactic acid 1.3. WBC 17. T-max 101.2. Continue antibiotics, Levaquin and azithromycin. Monitor CBC results. Platelets 366. Follow up on blood and urine cultures. 2. Probable multifocal pneumonia, present on admission, rule out coronavirus disease 2019. Coronavirus PCR negative. Chest x-ray shows multifocal pneumonia versus atelectasis. Incentive spirometry hourly while awake. Continue Levaquin and azithromycin antibiotics. We will start DuoNebs q.4 hours. Pulmonology consulted. 3. History of pancreatic cancer (in remission) with a history of distal pancreatectomy with splenectomy and omentectomy in 2008 with postoperative adjuvant chemotherapy. Oncology/Hematology has been consulted and appreciate recommendations. Monitor fingerstick blood glucose levels before meals and at bedtime for now. Regular diet. Resume home dose of metformin. Monitor fingerstick blood glucose results. Resume home dose of Creon. 4. Hyperlipidemia with a strong family history of coronary artery disease, assess lipid panel in the morning. 5. Prophylaxis, Pepcid and SCDs. H and P, billing code [id number], time spent 60 minutes. Dictated by Olivier Quinones NP MD [facility]/CLAIRE /[id number]
[2019-10-09] VITALS (8 sets, daily range): BP systolic 98–128; BP diastolic 52–62
[2019-10-09] MEDS: SODIUM CHLORIDE 0.9% 1000ML 1,000 ML IV SCH ×3 (06:03→18:30)
[2019-10-09 06:11] LABS: BASOPHILS % 0.3 % (0.0-1.0); EOSINOPHILS # (AUTO) 0.1 (0.0-0.4); EOSINOPHILS % 0.8 % (0.0-6.0); HEMATOCRIT 32.7 % (34.2-44.1); HEMOGLOBIN 10.8 g/dL (12.0-16.0); LYMPHOCYTES # (AUTO) 2.5 (1.0-3.2); LYMPHOCYTES % 18.7 % (18.0-39.1); MEAN CORPUSCULAR HEMOGLOBIN 30.5 pg (28-32); MEAN CORPUSCULAR VOLUME 92.4 fL (81-99); MONOCYTES # (AUTO) 1.2 (0.2-0.8); MONOCYTES % 9.3 % (4.4-11.3); NEUTROPHILS # (AUTO) 9.3 (2.1-6.9); NEUTROPHILS % 70.6 % (38.7-80.0); PLATELET COUNT 322 x10e3/uL (140-360); RED BLOOD COUNT 3.54 x10e6/uL (3.6-5.1); RED CELL DISTRIBUTION WIDTH 13.7 % (11.7-14.4)
[2019-10-09 06:33] LABS: ANION GAP 14.6 mmol/L (8-16); BLOOD UREA NITROGEN 10 mg/dL (7-26); BUN/CREATININE RATIO 19 (6-25); CALCIUM 8.1 mg/dL (8.4-10.2); CARBON DIOXIDE 22 mmol/L (22-29); CHLORIDE 108 mmol/L (98-107); CREATININE, SERUM 0.54 mg/dL (0.57-1.11); EST GLOMERULAR FILTRATION RATE > 60 ML/MIN (60-); GLUCOSE 95 mg/dL (74-118); POTASSIUM 3.6 mmol/L (3.5-5.1); SODIUM 141 mmol/L (136-145)
[2019-10-09 07:13] LABS: CHOL/HDL RATIO 3.8 (3.0-3.6); MAGNESIUM 1.9 MG/DL (1.3-2.1); PHOSPHORUS 2.7 MG/DL (2.3-4.7)
[2019-10-09 07:24] LABS: THYROID STIMULATING HORMONE 0.289 uIU/mL (0.350-4.940)
[2019-10-09] MEDS: DOCUSATE SODIUM 100 MG CAP PO SCH ×2 (09:00→16:32)
[2019-10-09] MEDS: MULTIVITAMINS/MINERALS TAB PO SCH (09:01)
[2019-10-09] MEDS: FAMOTIDINE 20 MG TAB PO SCH ×2 (09:01→16:31)
[2019-10-09] MEDS: AMYLAS/CELLU/LIPAS/PROTEA/BILE 12,000 UNIT CAP PO SCH ×3 (09:01→16:31)
[2019-10-09] MEDS: ENOXAPARIN 30 MG/0.3 ML SYR SC SCH (09:01)
[2019-10-09] MEDS: METFORMIN HCL 500 MG TAB PO SCH ×2 (09:01→16:31)
--- NOTE | 2019-10-09 13:49 | Consultation ---
DATE OF CONSULTATION: Pulmonary Critical Care Consultation CHIEF COMPLAINT: Fever, cough, and phlegm production. HISTORY OF PRESENT ILLNESS: The patient is a 74-year-old woman. She has a history of pancreatic cancer 10 years ago. She had surgery followed by chemotherapy and has not had any recurrence. She did have splenectomy during the surgery. Since that time, she has been prone to infections with capsulated bacteria. She has had frequent pneumonia and bronchitis. She now complains of cough for 2-3 days along with fever and congestion. She was feeling progressively ill and came to the emergency department. She was started on IV fluids and antibiotics and notes some improvement. PAST SURGICAL HISTORY: 1. Status post Whipple procedure with splenectomy and omentectomy and partial pancreatectomy. 2. Status post hysterectomy. 3. Status post fistular repair of an anorectal fistula. 4. Status post bladder suspension. PAST MEDICAL HISTORY: 1. Pancreatic cancer as noted above. 2. Cholelithiasis. 3. Recurrent bronchopneumonia. FAMILY HISTORY: There is a history of diabetes and vascular disease. 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 She is not a drinker and has never been a smoker. ALLERGIES: SHE IS ALLERGIC TO PENICILLIN. REVIEW OF SYSTEMS: She had some fevers. She does not have headache. She has no neck pain. She does have some phlegm production. She has some cough and congestion. She denies any chest pain. She has no abdominal pain. She has no nausea or vomiting. She has no leg edema. PHYSICAL EXAMINATION: VITAL SIGNS: The patient is afebrile. The blood pressure is 128/60, saturation is 95% and the pulse is 79. HEENT: No facial swelling or erythema. LYMPHATIC: No submandibular, cervical, or supraclavicular adenopathy. CARDIAC: Regular rate and rhythm with normal S1, S2. LUNGS: Auscultation of lungs reveals rhonchorous breath sounds bilaterally. There is no wheezing. ABDOMEN: Soft, nontender. There is no rebound or guarding. EXTREMITIES: No leg edema or calf tenderness. There is no cyanosis or clubbing. SKIN: No rashes. NEUROLOGICAL: No focal abnormalities. LABORATORY DATA: White blood cell count is 13.2 and hemoglobin is 10.8. The platelet count is 322. BUN to creatinine ratio is normal. The other electrolytes are within normal limits. RADIOGRAPHIC DATA: Chest x-ray shows bilateral infiltrates suggestive of multifocal pneumonia. IMPRESSION: 1. Community-acquired pneumonia with sepsis, present on admission. 2. History of pancreatic cancer. 3. Prior splenectomy. 4. Anemia, unspecified. PLAN: 1. Continue current IV antibiotics. 2. The patient has received fluids intravenously. 3. Continue pancreatic enzymes. 4. Continue to monitor white blood cell count and electrolytes. Ruben Pham MD [facility]/MODL /[id number]
[2019-10-09] MEDS: LEVOFLOXACIN 750MG/D5W 150ML 150 ML IV SCH (16:31)
[2019-10-09] MEDS ORDERED: LEVOFLOXACIN 750MG/D5W 150ML IV SCH (18:30)
[2019-10-09] MEDS: AZITHROMYCIN 500MG/NS 250 ML 250 ML IV SCH (20:12)
[2019-10-09] MEDS: ALBUTEROL/IPRATROPIUM 3 ML NEB NEB SCH ×2 (20:30→23:00)
--- NOTE | 2019-10-09 21:16 | Progress Note ---
DATE: 10/09/2019 SUBJECTIVE: The patient is sitting up in a chair at the bedside. She is feeling much better. She has a better appetite. She is eating more. She denies any cough or phlegm. At present, no fever, no congestion, no headache. She still has weakness, but is improving and getting better. OBJECTIVE: VITAL SIGNS: Temperature 98.1, pulse 67, blood pressure 98/62, respirations 16, and oxygen saturation 96% on room air. GENERAL: Out of bed, sitting in the chair, in no acute distress. LUNGS: Clear to auscultation. Diminished at bases. Respiratory pattern even and unlabored. No supplemental oxygen. HEENT: EOMI. Oropharynx is clear. NECK: Supple. No thyromegaly or JVD noted. CARDIOVASCULAR: Regular rate and rhythm without murmur. She has normal saline infusing at 125 mL an hour into peripheral IV. ABDOMEN: Bowel sounds positive. Soft, nontender. No guarding. EXTREMITIES: No pitting edema. No clubbing, cyanosis, notable swelling, or any signs of DVT. NEUROLOGIC: GCS 15. Nonfocal. LABORATORY DATA: WBCs 13.24, hemoglobin 10.8, hematocrit 32.7, and platelets 322. Sodium 141, potassium 3.6, chloride 108, CO2 of 22, anion gap 14.6, BUN 10, creatinine 0.54, estimated GFR greater than 60, glucose 95, and calcium 8.1. Hemoglobin A1c 6.2%. Fingerstick blood glucose levels 98, 152, 151. Phosphorus 2.7 and magnesium 1.9. Triglycerides 91, cholesterol 159, LDL 99, HDL 42. TSH 0.289. No growth from blood cultures in the last 24 hours. Urine culture remains pending. No new imaging studies. ASSESSMENT AND PLAN: 1. Post splenectomy sepsis, POA, likely due to pneumonia. WBCs 13.2 (17). Continue Levaquin and azithromycin antibiotics. Follow up on blood and urine cultures. 2. Multifocal community-acquired pneumonia, POA. Encourage incentive spirometry hourly while awake. Continue Levaquin and azithromycin antibiotics. Pulmonology following. 3. History of pancreatic cancer (in remission) with a history of distal pancreatectomy with splenectomy and omentectomy in 2008 with postoperative adjuvant chemotherapy. Oncology-Hematology following. Continue regular diet. Monitor fingerstick blood glucose levels. Resume home dose of Creon. 4. Hyperlipidemia with a strong family history of coronary artery disease. Lipid panel generally within normal limits. 5. Prophylaxis. Pepcid and SCDs. BILLING CODE: [id number]. TIME SPENT: 35 minutes. Dictated by Olivier Quinones, LIONEL MD [facility]/MODL /[id number]
--- NOTE | 2019-10-09 21:45 | NUR ---
Resumed care of patient. Patient up and ambulating down hallway, no s/s of distress at this time. Patient instructed to call for assistance if needed, verbalized understanding. All safety measures in place.
[2019-10-10] VITALS (8 sets, daily range): BP systolic 113–146; BP diastolic 50–79
[2019-10-10] MEDS: SODIUM CHLORIDE 0.9% 1000ML 1,000 ML IV SCH ×3 (01:29→17:12)
[2019-10-10] MEDS: ALBUTEROL/IPRATROPIUM 3 ML NEB NEB SCH ×6 (03:00→23:45)
[2019-10-10 06:03] LABS: BASOPHILS # (AUTO) 0.1 (0.0-0.1); BASOPHILS % 0.5 % (0.0-1.0); EOSINOPHILS # (AUTO) 0.2 (0.0-0.4); EOSINOPHILS % 1.9 % (0.0-6.0); HEMATOCRIT 32.4 % (34.2-44.1); HEMOGLOBIN 10.6 g/dL (12.0-16.0); LYMPHOCYTES # (AUTO) 3.3 (1.0-3.2); LYMPHOCYTES % 33.1 % (18.0-39.1); MEAN CORPUSCULAR HEMOGLOBIN 29.9 pg (28-32); MEAN CORPUSCULAR HGB CONC 32.7 g/dL (31-35); MEAN CORPUSCULAR VOLUME 91.3 fL (81-99); MONOCYTES # (AUTO) 1.2 (0.2-0.8); NEUTROPHILS # (AUTO) 5.1 (2.1-6.9); NEUTROPHILS % 52.2 % (38.7-80.0); PLATELET COUNT 346 x10e3/uL (140-360); RED BLOOD COUNT 3.55 x10e6/uL (3.6-5.1); RED CELL DISTRIBUTION WIDTH 13.7 % (11.7-14.4)
[2019-10-10 06:41] LABS: ALANINE AMINOTRANSFERASE 25 IU/L (0-55); ALBUMIN 2.7 g/dL (3.5-5.0); ALBUMIN/GLOBULIN RATIO 0.8 (0.8-2.0); ALKALINE PHOSPHATASE 113 IU/L (40-150); ANION GAP 12.4 mmol/L (8-16); BLOOD UREA NITROGEN 6 mg/dL (7-26); BUN/CREATININE RATIO 12 (6-25); CALCIUM 8.1 mg/dL (8.4-10.2); CARBON DIOXIDE 23 mmol/L (22-29); CHLORIDE 112 mmol/L (98-107); CREATININE, SERUM 0.52 mg/dL (0.57-1.11); EST GLOMERULAR FILTRATION RATE > 60 ML/MIN (60-); GLUCOSE 121 mg/dL (74-118); POTASSIUM 3.4 mmol/L (3.5-5.1); SODIUM 144 mmol/L (136-145)
--- NOTE | 2019-10-10 08:58 | Progress Note ---
DATE: SUBJECTIVE: She feels better overall. She is off oxygen. She still has some fatigue and weakness. PHYSICAL EXAMINATION: VITAL SIGNS: The patient is afebrile. The blood pressure is 113/52 and the pulse is 75. Saturation is 98%. HEENT: Shows no facial swelling or erythema. LYMPHATIC: Shows no submandibular, cervical, or supraclavicular adenopathy. CARDIAC: Reveals regular rate and rhythm with normal S1 and S2. LUNGS: Auscultation of lungs reveals crackles and rhonchi bilaterally. There is no wheezing. ABDOMEN: Soft and nontender. There is no rebound or guarding. EXTREMITIES: Shows no leg edema or calf tenderness. There is no cyanosis or clubbing. SKIN: Shows no rashes. NEUROLOGICAL: Shows no focal abnormalities. LABORATORY DATA: White blood cell count is 9.8, hemoglobin is 10.6. The platelet count is 346. The BUN to creatinine ratio is 6 to 0.52 and the potassium is 3.4. IMPRESSION: 1. Community-acquired pneumonia with sepsis, present on admission. 2. History of pancreatic cancer. 3. Prior splenectomy. 4. Anemia, unspecified. PLAN: 1. Okay for discharge. 2. The patient should complete course of p.o. Levaquin at home for an additional 8 days. 3. The patient should follow up in 10 to 14 days for repeat chest x-ray. 4. Because the patient is asplenic, she is at increased risk for additional infections with encapsulated bacteria and she should call physician or come to the emergency room if her fever or symptoms recur. Ruben Pham MD [facility]/CHERELLEL /[id number]
[2019-10-10] MEDS: AMYLAS/CELLU/LIPAS/PROTEA/BILE 12,000 UNIT CAP PO SCH ×3 (09:24→17:02)
[2019-10-10] MEDS: FAMOTIDINE 20 MG TAB PO SCH ×2 (09:24→17:12)
[2019-10-10] MEDS: ENOXAPARIN 30 MG/0.3 ML SYR SC SCH (09:25)
[2019-10-10] MEDS: MULTIVITAMINS/MINERALS TAB PO SCH (09:25)
[2019-10-10] MEDS: DOCUSATE SODIUM 100 MG CAP PO SCH ×2 (09:32→17:03)
[2019-10-10] MEDS: METFORMIN HCL 500 MG TAB PO SCH ×2 (09:32→17:03)
[2019-10-10] MEDS ORDERED: ACETAMINOPHEN325 M1 PO (11:43)
[2019-10-10] MEDS ORDERED: COLACE100 MG PO (11:43)
--- NOTE | 2019-10-10 12:48 | Progress Note ---
DATE: CONSULTING PHYSICIANS: 1. Dr. Chris Donis. 2. Ruben Pham with Pulmonology. SUBJECTIVE: The patient states that she is not 100%, but is much improved. She denies chills and headache. Reports that she has been ambulating in the hallway without difficulty. She had complained of yellow phlegm yesterday, now phlegm is white with neb treatments. She declined Ensure supplement when offered. Her appetite is improving. Last bowel movement was today. OBJECTIVE: VITAL SIGNS: Temperature 98.3, pulse 75, blood pressure 113/52, respirations 20, oxygen saturation 98% on room air. GENERAL: Out of bed, sitting up in a chair at the bedside. Awake, alert, no acute distress. LUNGS: Clear. No wheezing noted. No supplemental oxygen. HEENT: EOMI. NECK: Supple. No lymphadenopathy, thyromegaly, or JVD. CARDIOVASCULAR: Regular rate and rhythm without murmur. Normal saline infused at 125 mL an hour. ABDOMEN: Bowel sounds positive. Soft, nontender. No guarding. EXTREMITIES: No pitting edema. No clubbing, cyanosis, or marked swelling. NEUROLOGICAL: GCS 15. Nonfocal. DIAGNOSTIC STUDIES/LABORATORY DATA: WBCs 9.84, hemoglobin 10.6, hematocrit 32.4, and platelets 346. Sodium 144, potassium 3.4, chloride 112, CO2 23, anion gap 12.4, BUN 6, creatinine 0.52, estimated GFR greater than 60, glucose 121, calcium 8.1, total bilirubin 0.3, AST 20, ALT 25, alkaline phosphatase 113, total protein 5.4, albumin 2.5. CA-19-9 antigen is pending. On 10/07, final urine culture results show no growth after 36-48 hours. On 10/07, blood cultures x2. Preliminary results show no growth after 24 hours. ASSESSMENT/PLAN: 1. Post splenectomy sepsis, present on admission, possibly due to pneumonia. WBCs 9.84 (13.24). Currently afebrile. Continue IV antibiotics, Levaquin and azithromycin. Continue to monitor the CBC results. Follow up on final blood culture and sensitivity results. 2. Multifocal pneumonia, POA. Chest x-ray showed multifocal pneumonia versus atelectasis. Pulmonology following, incentive spirometry hourly while awake. Continue Levaquin and azithromycin antibiotics. DuoNebs q.4 hours. 3. History of pancreatic cancer (in remission) with a history of distal pancreatectomy with splenectomy and omentectomy in 2009 with postoperative adjuvant chemotherapy, Oncology/Hematology following, appreciate recommendations. Monitor FSBG a.c. h.s. Continue regular diet with thin liquids. The patient had a bedside swallow evaluation by speech therapy yesterday, which she passed. Monitor FSBG a.c. and h.s. Resumed home dose of metformin and Creon. 4. Anemia, unspecified. Hemoglobin 10.6. Monitor H and H. 5. Hyperlipidemia with a strong family history of coronary artery disease. Lipid panel done 10/08 with results within normal limits. Triglycerides 91, cholesterol 159, LDL 99, HDL 42. 6. Discharge planning. Possible discharge 10/10. The patient will need to continue on Levaquin 500 mg p.o. daily for eight days. Follow up chest x-ray in 10-14 days. The patient is asplenic and increased risk for additional infections. She should call her physician or come to the emergency room if she has fever or symptoms recur post discharge. 7. Prophylaxis, Pepcid and SCDs. BILLING CODE: [id number]. TIME SPENT: 35 minutes. Dictated by Olivier Quinones NP MD ANY ChinP/CLAIRE /[id number]
[2019-10-10] MEDS: LEVOFLOXACIN 750MG/D5W 150ML 150 ML IV SCH (17:03)
[2019-10-10] MEDS ORDERED: ONDANSETRON HCL 4 MG ORAL DISINTEGRATING TAB PO PRN (17:45)
--- NOTE | 2019-10-10 19:00 | NUR ---
RECEIVED PATIENT IN BEDSIDE SHIFT REPORT. PATIENT AMBULATING AT THIS TIME, STEADY GAIT NOTED. NO PAIN REPORTED. NO S&S OF DISTRESS NOTED. BED LOCKED IN LOWEST POSITION, SIDE RAILS UPX2, CALL LIGHT IN REACH.
--- NOTE | 2019-10-10 19:15 | NUR ---
Report given to oncoming nurse, pt stable at shift change.
[2019-10-10] MEDS ORDERED: CHLORDIAZEPOXIDE HCL 10 MG CAP PO SCH (21:00)
[2019-10-10] MEDS: AZITHROMYCIN 500MG/NS 250 ML 250 ML IV SCH (21:33)
[2019-10-11] VITALS (9 sets, daily range): BP systolic 114–153; BP diastolic 55–75
[2019-10-11] MEDS: SODIUM CHLORIDE 0.9% 1000ML 1,000 ML IV SCH ×2 (02:30→10:30)
[2019-10-11 06:16] LABS: BASOPHILS # (AUTO) 0.1 (0.0-0.1); BASOPHILS % 0.6 % (0.0-1.0); EOSINOPHILS # (AUTO) 0.1 (0.0-0.4); EOSINOPHILS % 1.3 % (0.0-6.0); HEMATOCRIT 29.7 % (34.2-44.1); HEMOGLOBIN 9.9 g/dL (12.0-16.0); LYMPHOCYTES # (AUTO) 3.2 (1.0-3.2); LYMPHOCYTES % 35.2 % (18.0-39.1); MEAN CORPUSCULAR HEMOGLOBIN 29.6 pg (28-32); MEAN CORPUSCULAR HGB CONC 33.3 g/dL (31-35); MEAN CORPUSCULAR VOLUME 88.9 fL (81-99); MONOCYTES % 11.5 % (4.4-11.3); NEUTROPHILS # (AUTO) 4.6 (2.1-6.9); NEUTROPHILS % 51.1 % (38.7-80.0); PLATELET COUNT 379 x10e3/uL (140-360); RED BLOOD COUNT 3.34 x10e6/uL (3.6-5.1); RED CELL DISTRIBUTION WIDTH 13.7 % (11.7-14.4)
[2019-10-11] MEDS: ALBUTEROL/IPRATROPIUM 3 ML NEB NEB SCH ×5 (06:20→23:00)
[2019-10-11 06:42] LABS: ANION GAP 14.2 mmol/L (8-16); BLOOD UREA NITROGEN 7 mg/dL (7-26); BUN/CREATININE RATIO 13 (6-25); CALCIUM 8.3 mg/dL (8.4-10.2); CARBON DIOXIDE 24 mmol/L (22-29); CHLORIDE 108 mmol/L (98-107); CREATININE, SERUM 0.55 mg/dL (0.57-1.11); EST GLOMERULAR FILTRATION RATE > 60 ML/MIN (60-); GLUCOSE 125 mg/dL (74-118); POTASSIUM 3.2 mmol/L (3.5-5.1); SODIUM 143 mmol/L (136-145)
[2019-10-11] MEDS: FAMOTIDINE 20 MG TAB PO SCH ×2 (08:42→16:18)
[2019-10-11] MEDS: AMYLAS/CELLU/LIPAS/PROTEA/BILE 12,000 UNIT CAP PO SCH ×3 (08:43→16:19)
[2019-10-11] MEDS: ENOXAPARIN 30 MG/0.3 ML SYR SC SCH (08:45)
[2019-10-11] MEDS: METFORMIN HCL 500 MG TAB PO SCH ×2 (08:45→16:20)
[2019-10-11] MEDS: MULTIVITAMINS/MINERALS TAB PO SCH (08:45)
[2019-10-11] MEDS: DOCUSATE SODIUM 100 MG CAP PO SCH ×2 (08:45→16:19)
--- NOTE | 2019-10-11 10:10 | NUR ---
Dr. Donis, here to see pt.
--- NOTE | 2019-10-11 10:24 | NUR ---
Spoke with Olivier Quinones [employer]IDENT [employer] and discussed status and dc plan. He plans to discharge her today.
[2019-10-11] MEDS ORDERED: POTASSIUM CHLORIDE 20MEQ/100ML 200 ML IV ONE (10:30)
[2019-10-11] MEDS ORDERED: POTASSIUM CHLORIDE 20 MEQ TAB CR PO ONE ×3 (10:45→21:00)
--- NOTE | 2019-10-11 11:06 | NUR ---
Olivier Quinones NETWORK SUPPORT ANALYST notified CM that Dr. Donis wants pt to stay due to pt being immunocompromised. CXR to be done in am.
[2019-10-11] MEDS ORDERED: KCL 40MEQ/0.9% SOD CHL 1,000 ML IV ONE (12:45)
--- NOTE | 2019-10-11 15:30 | NUR ---
pt have new iv site to rfa 20 gauge. pt tolerated well.
[2019-10-11] MEDS: LEVOFLOXACIN 750MG/D5W 150ML 150 ML IV SCH (16:20)
--- NOTE | 2019-10-11 18:55 | NUR ---
RECEIVED BEDSIDE SHIFT REPORT FROM MORNING NURSE. PT ALERT AND ORIENTED, SITTING ON COUCH. DENIES PAIN AT THIS TIME. INFORMED TO CALL IF SHE NEEDS NEEDS ASSISTANCE. PT'S GOAL IS TO RECEIVE ANTIBIOTICS AND GO HOME.
--- NOTE | 2019-10-11 19:28 | NUR ---
report given to oncoming nurse . pt stable at this time .
[2019-10-11] MEDS ORDERED: ACETAMINOPHEN/CODEINE 300MG - 30MG TAB PO PRN (20:30)
[2019-10-11] MEDS: AZITHROMYCIN 500MG/NS 250 ML 250 ML IV SCH (22:02)
--- NOTE | 2019-10-11 23:14 | NUR ---
Date of Service: 10/11/2019 ATTENDING PHYSICIAN: Dr. Naveen Aldana CONSULTING PHYSICIANS: 1. Dr. Chris Donis. 2. Ruben Pham with Pulmonology. SUBJECTIVE: The patient states that she is not 100%, but is much improved. She denies chills or headache. Reports that she has been ambulating in the hallway without difficulty. She declined Ensure supplement when offered. Her appetite is improving. Last bowel movement was today. OBJECTIVE: VITAL SIGNS: Temperature 98.2, pulse 75, 114/55, respirations 20, SpO2 98% on room air. GENERAL: Out of bed, sitting up in a chair at the bedside. Awake, alert, no acute distress. LUNGS: Clear. No wheezing noted. No supplemental oxygen. HEENT: EOMI. NECK: Supple. No lymphadenopathy, thyromegaly, or JVD. CARDIOVASCULAR: Regular rate and rhythm without murmur. Normal saline infused at 125 mL an hour. ABDOMEN: Bowel sounds positive. Soft, nontender. No guarding. EXTREMITIES: No pitting edema. No clubbing, cyanosis, or marked swelling. NEUROLOGICAL: GCS 15. Nonfocal. DIAGNOSTIC STUDIES LABORATORY DATA: WBCs 9.07 (9.84), hemoglobin 9.9 (10.6), hematocrit 29.7 (32.4), and platelets 379 (346). Sodium 143, potassium 3.2 (3.4), chloride 108, CO2 24, BUN 7, creatinine 0.55, estimated GFR > 60, glucose 125 10/07, final urine culture results show no growth after 36-48 hours. 10/07, blood cultures x2. Preliminary results show no growth after 24 hours. IMAGING/OTHER: 10/07 CXR: Nodular opacities at the bilateral lung bases which may represent atelectasis and/or multifocal pneumonia in the proper clinical setting. ASSESSMENT/PLAN: 1. Post splenectomy sepsis, present on admission, possibly due to pneumonia: WBCs 9.07 (9.84, 13.24), trending down. Currently afebrile. Continue IV antibiotics, Levaquin and azithromycin. Continue to monitor the CBC results. Follow up on final blood culture and sensitivity results. 2. Multifocal pneumonia, POA. Chest x-ray showed multifocal pneumonia versus atelectasis. Pulmonology following, incentive spirometry hourly while awake. Continue levaquin and azithromycin antibiotics. DuoNebs q.4 hours. 3. History of pancreatic cancer (in remission) with a history of distal pancreatectomy with splenectomy and omentectomy in 2008 with postoperative adjuvant chemotherapy: Oncology/Hematology following, appreciate recommendations. Monitor FSBG a.c. h.s. Continue regular diet with thin liquids. The patient had a bedside swallow evaluation by speech therapy, which she passed. Monitor FSBG a.c. and h.s. Resumed home dose of metformin and Creon. 4. Anemia, unspecified. Hemoglobin 9.9. Monitor H and H. 5. Hyperlipidemia with a strong family history of coronary artery disease. Lipid panel done 10/08 with results within normal limits. Triglycerides 91, cholesterol 159, LDL 99, HDL 42. Prophylaxis, Pepcid and SCDs. Discharge planning: Case discussed with Dr. Aldana and all consultants. Allergy to Penicillins noted; +concerns regarding known side effect of Levaquin, tendonitis/tendon rupture. The patient is asplenic and at increased risk for additional infections. She needs to be up to date with Pneumovax & Haemophilus Influenzae Vaccine. She may need to be on oral antibiotics on an outpatient basis a bit longer than the norm, given her immunological status. There has been discussion regarding continuing the patient on Levaquin 500 mg p.o. daily for between eight and fourteen days post discharge. Follow up chest x-ray is ordered. She should call her physician or come to the emergency room if she has fever or symptoms recur post discharge. BILLING CODE: [id number]. TIME SPENT: 35 minutes.
[2019-10-12] MEDS: ALBUTEROL/IPRATROPIUM 3 ML NEB NEB SCH ×5 (03:00→19:00)
[2019-10-12 05:11] VITALS: BP 100/54
--- NOTE | 2019-10-12 07:40 | NUR ---
PATIENT IS AWAKE, ALERT, AND IN STABLE CONDITION WITH NO S/S OF RESPIRATORY DISTRESS-NO PAIN VOICED. CALL LIGHT IS WITHIN REACH, PATIENT INSTRUCTED TO CALL FOR ASSISTANCE NEEDED.
[2019-10-12 07:41] LABS: BASOPHILS # (AUTO) 0.1 (0.0-0.1); BASOPHILS % 0.7 % (0.0-1.0); EOSINOPHILS # (AUTO) 0.5 (0.0-0.4); EOSINOPHILS % 4.6 % (0.0-6.0); HEMATOCRIT 32.8 % (34.2-44.1); LYMPHOCYTES # (AUTO) 3.9 (1.0-3.2); LYMPHOCYTES % 39.3 % (18.0-39.1); MEAN CORPUSCULAR HEMOGLOBIN 30.6 pg (28-32); MEAN CORPUSCULAR HGB CONC 33.5 g/dL (31-35); MEAN CORPUSCULAR VOLUME 91.4 fL (81-99); MONOCYTES % 9.8 % (4.4-11.3); NEUTROPHILS # (AUTO) 4.4 (2.1-6.9); NEUTROPHILS % 45.3 % (38.7-80.0); PLATELET COUNT 383 x10e3/uL (140-360); RED BLOOD COUNT 3.59 x10e6/uL (3.6-5.1); RED CELL DISTRIBUTION WIDTH 13.8 % (11.7-14.4)
[2019-10-12] MEDS: FAMOTIDINE 20 MG TAB PO SCH ×2 (08:25→16:25)
[2019-10-12] MEDS: DOCUSATE SODIUM 100 MG CAP PO SCH ×2 (08:25→16:25)
[2019-10-12] MEDS: AMYLAS/CELLU/LIPAS/PROTEA/BILE 12,000 UNIT CAP PO SCH ×3 (08:25→16:26)
[2019-10-12] MEDS: MULTIVITAMINS/MINERALS TAB PO SCH (08:25)
[2019-10-12] MEDS: ENOXAPARIN 30 MG/0.3 ML SYR SC SCH (08:25)
[2019-10-12] MEDS: METFORMIN HCL 500 MG TAB PO SCH ×2 (08:25→16:26)
--- NOTE | 2019-10-12 08:25 | Diagnostic Imaging Report ---
TECHNIQUE: Frontal view of the chest. INDICATION: ^pneumonia ^[id number] ^[id number] COMPARISON: 10/08/2019 DISCUSSION: Limited evaluation due to portable technique. Lines and hardware: None Heart and mediastinum: Stable. Lungs and pleura: Interval improvement in the nodular opacities at the lung bases. Negative for large pneumothorax or pleural effusion. There are somewhat increased opacities in the right upper lobe laterally along the fissure. Soft tissues and bones: No acute abnormality. Surgical clips are identified in the right quadrant. IMPRESSION: 1. Increasing hazy opacities within the right upper lobe along the fissure are concerning for developing consolidation. 2. Previously identified nodular basilar opacities have resolved. Signed by: Jai Patino MD on 10/12/2019 8:21 AM
[2019-10-12 08:29] LABS: ANION GAP 16.1 mmol/L (8-16); BLOOD UREA NITROGEN 7 mg/dL (7-26); BUN/CREATININE RATIO 13 (6-25); CALCIUM 8.9 mg/dL (8.4-10.2); CARBON DIOXIDE 24 mmol/L (22-29); CHLORIDE 106 mmol/L (98-107); CREATININE, SERUM 0.55 mg/dL (0.57-1.11); EST GLOMERULAR FILTRATION RATE > 60 ML/MIN (60-); GLUCOSE 109 mg/dL (74-118); MAGNESIUM 1.9 MG/DL (1.3-2.1); PHOSPHORUS 3.2 MG/DL (2.3-4.7); POTASSIUM 4.1 mmol/L (3.5-5.1); SODIUM 142 mmol/L (136-145)
[2019-10-12 08:53] VITALS: BP 117/57
[2019-10-12 09:07] VITALS: BP 117/57
[2019-10-12 12:30] VITALS: BP 114/56
[2019-10-12 16:19] VITALS: BP 121/61
[2019-10-12] MEDS ORDERED: LEVOFLOXACIN 500 MG TAB PO SCH (18:00)
--- NOTE | 2019-10-12 19:18 | NUR ---
PATIENT IN STABLE CONDITION WITH NO S/S OF RESPIRATORY DISTRESS. NO PAIN VOICED. CALL LIGHT IS WITHIN REACH OF PATIENT- PATIENT INSTRUCTED TO CALL FOR ASSISTANCE NEEDED. BEDSIDE SHIFT REPORT GIVEN TO ONCOMING NURSE.
--- NOTE | 2019-10-12 19:28 | NUR ---
Received change of shift report from AM nurse. Walking rounds completed.
[2019-10-12] MEDS: AZITHROMYCIN 500MG/NS 250 ML 250 ML IV SCH (19:59)
[2019-10-12 20:02] VITALS: BP 132/64
[2019-10-12] MEDS ORDERED: LEVAQUIN500 MG PO ×3 (20:06→20:49)
--- NOTE | 2019-10-12 21:37 | NUR ---
Patient d/c home. IV d/c with pressure dressing applied. D/C via private care.
--- NOTE | 2019-10-12 22:59 | Discharge Summary ---
PRIMARY CARE PHYSICIAN: Chris Donis MD CONSULTING PHYSICIANS: Dr. Chris Donis with Hematology Oncology as well as Dr. Ruben Pham with Pulmonology. The patient has a history of being seen at the [facility] in 2009 by e commerce manager, Dr. Mitchell and seen previously by gypsum roofer, Dr. Garrett in June 2017. CHIEF COMPLAINT: Cough and fever. HISTORY: The patient is a 74-year-old female with mild cough for 3 days, fever of 101.5 at home with a fever of 101.2 in the emergency department. The patient stated in the emergency department that her last dose of Tylenol was at 3 o'clock the morning of admission. She reported frequent infections such as bronchitis, pneumonia, bladder infections since her pancreatic cancer and related pancreatic surgery in 2008. She denies loss of sense of taste or smell. Denies any sick contacts including being around anyone with COVID and her COVID test has come back negative. Please see dictated history and physical dated on 10/08/2019 for past medical history, past surgical history, family history, social history, list of allergies, home medications, initial laboratory and imaging data. ADMITTING DIAGNOSES: 1. Post splenectomy, sepsis, present on admission, possibly due to pneumonia. 2. Probable multifocal pneumonia, present on admission, rule out coronavirus disease-2019. 3. History of pancreatic cancer (in remission) with a history of distal pancreatectomy with splenectomy and omentectomy in 2008 with postoperative adjuvant chemotherapy. 4. Hyperlipidemia with a strong family history of coronary artery disease. DISCHARGE DIAGNOSES: 1. Post splenectomy sepsis, present on admission, possibly due to pneumonia. 2. Multifocal pneumonia, present on admission. 3. History of pancreatic cancer (in remission) with history of distal pancreatectomy with splenectomy and omentectomy in 2008 with postoperative adjuvant chemotherapy. 4. Anemia, unspecified. 5. Hyperlipidemia with a strong family history of coronary artery disease. HOSPITAL COURSE: During her stay, the patient was receiving azithromycin and Levaquin IV. Her white blood cell count has improved. WBCs today 9.8 prior to that 9.07, prior to that 9.84, prior to that 13.24, it has trended down. Chest x-ray showed multifocal pneumonia versus atelectasis. Incentive spirometry and DuoNebs utilized. The patient to continue regular diet upon discharge. She had a bedside swallow evaluation by speech therapy, which she passed. Lipid panel done on 10/09/2019 with results within normal limits. Case was discussed with Dr. Aldana and all consultants. Her allergy to penicillins has been noted. Apparently, she has had Levaquin before. There were some concerns regarding known side effects of Levaquin, specifically tendinitis/tendon rupture. However, the patient has had Levaquin before without ill effects. She was asplenic and had increased risk for additional infections. She needs to be up to date with Pneumovax and Haemophilus influenza vaccine. She may need to be on oral antibiotics on an outpatient basis a bit longer than the norm given her immunological status. Thus, 14 days of Levaquin prescription has been provided. The patient is to follow up with her PCP, Dr. Donis as directed within 1-2 weeks. The patient was instructed to come back to the emergency room if any signs or symptoms of infection persist or get worse. Subjectively, the patient is doing well. Has minimal amount of white phlegm. Her followup chest x-ray on 10/12/2019, showed increasing hazy opacities within the right upper lobe along the fissure are concerning for developing consolidation. Previously identified nodular basilar opacities have resolved. Vital signs temperature 98.6, pulse 68, blood pressure 100/54, respirations 16, oxygen saturation 98% on room air. Labs on the day of discharge, WBC 9.8, hemoglobin 11, hematocrit 32.8, platelets 393. Sodium 142, potassium 4.1, chloride 106, CO2 of 24, anion gap 16.1, BUN 7, creatinine 0.55, estimated GFR greater than 60, glucose 109. Fingerstick blood glucose levels 115, 98, 117, calcium 8.9, phosphorus 3.2, magnesium 1.9. The patient will be given a prescription for Levaquin 500 mg p.o. daily for 14 days. Dictated by Olivier Quinones NP Naveen Aldana MD HWP/MODL /[id number]
== END 2019-10-12 21:41 | disposition home or self-care (01) | DRG 871 ==
LOC: ER 17:00 → ERHOLD 18:29 → MED/SURG3 19:52
PROVIDERS: ADMIT Internal Medicine; ATTEND Internal Medicine
DX: A41.9 Sepsis, unspecified organism (principal); J18.9 Pneumonia, unspecified organism; D64.9 Anemia, unspecified; K21.9 Gastro-esophageal reflux disease without esophagitis; K80.20 Calculus of gallbladder without cholecystitis without obstruction; E78.5 Hyperlipidemia, unspecified; Z85.07 Personal history of malignant neoplasm of pancreas; Z88.5 Allergy status to narcotic agent; Z88.0 Allergy status to penicillin; Z88.8 Allergy status to other drugs, medicaments and biological substances; Z90.81 Acquired absence of spleen; Z11.59 Encounter for screening for other viral diseases; Z82.49 Family history of ischemic heart disease and other diseases of the circulatory system; Z87.442 Personal history of urinary calculi; Z79.84 Long term (current) use of oral hypoglycemic drugs
CPT/HCPCS: 36415; 71045; 80048; 80053; 80061; 81001; 82550; 82553; 82948; 83036; 83605; 83735; 84100; 84443; 84484; 85025; 85610; 85730; 86301; 87040; 87086; 93005; 94640; 96360; 97139; 99284; J0456; J1650; J7030; U0002

== ENCOUNTER → 2020-05-27 | Day surgery (SDC) | payer MEDICARE, OTHER ==
[2020-05-24 09:35] LABS: BASOPHILS % 0.6 % (0.0-1.0); EOSINOPHILS # (AUTO) 0.1 (0.0-0.4); EOSINOPHILS % 1.6 % (0.0-6.0); HEMATOCRIT 37.3 % (34.2-44.1); HEMOGLOBIN 12.4 g/dL (12.0-16.0); LYMPHOCYTES # (AUTO) 2.3 (1.0-3.2); LYMPHOCYTES % 35.7 % (18.0-39.1); MEAN CORPUSCULAR HGB CONC 33.2 g/dL (31-35); MEAN CORPUSCULAR VOLUME 90.3 fL (81-99); MONOCYTES # (AUTO) 0.7 (0.2-0.8); MONOCYTES % 10.2 % (4.4-11.3); NEUTROPHILS # (AUTO) 3.3 (2.1-6.9); NEUTROPHILS % 51.7 % (38.7-80.0); PLATELET COUNT 388 x10e3/uL (140-360); RED BLOOD COUNT 4.13 x10e6/uL (3.6-5.1); RED CELL DISTRIBUTION WIDTH 13.2 % (11.7-14.4)
[2020-05-24 10:07] LABS: ALANINE AMINOTRANSFERASE 12 IU/L (0-55); ALBUMIN 3.7 g/dL (3.5-5.0); ALKALINE PHOSPHATASE 98 IU/L (40-150); ANION GAP 11.6 mmol/L (8-16); BLOOD UREA NITROGEN 17 mg/dL (7-26); BUN/CREATININE RATIO 28 (6-25); CALCIUM 8.9 mg/dL (8.4-10.2); CARBON DIOXIDE 30 mmol/L (22-29); CHLORIDE 105 mmol/L (98-107); CREATININE, SERUM 0.61 mg/dL (0.57-1.11); EST GLOMERULAR FILTRATION RATE > 60 ML/MIN (60-); GLUCOSE 120 mg/dL (74-118); POTASSIUM 3.6 mmol/L (3.5-5.1); SODIUM 143 mmol/L (136-145)
[~2020-05-27] MED LIST changes: +ACETAMINOPHEN325 M1 PO; +COLACE100 MG PO; +CREON DR 12,001 EACH PO; +LEVAQUIN500 MG PO
[2020-05-27 08:50] VITALS: BP 120/56
== END | disposition home or self-care (01) ==
LOC: OR 06:18
PROVIDERS: ATTEND Surgery
DX: K29.00 Acute gastritis without bleeding (principal); E11.9 Type 2 diabetes mellitus without complications; Z88.6 Allergy status to analgesic agent; Z88.0 Allergy status to penicillin; Z88.1 Allergy status to other antibiotic agents; Z01.810 Encounter for preprocedural cardiovascular examination; Z01.812 Encounter for preprocedural laboratory examination; Z01.818 Encounter for other preprocedural examination; Z20.822 Contact with and (suspected) exposure to COVID-19; Z79.84 Long term (current) use of oral hypoglycemic drugs
CPT/HCPCS: 36415 ×2; 43235; 71046; 80053; 82948; 85025; 93005; U0002; 43239

== ENCOUNTER → 2020-11-18 | Outpatient (CLI) | payer MEDICARE, OTHER | LOC: RAD 07:03 | PROVIDERS: ATTEND Internal Medicine Medical Oncology | DX: R05.9 Cough, unspecified (principal) | CPT/HCPCS: 71046 ==

== ENCOUNTER → 2024-05-06 | Outpatient (REF) | payer MEDICARE, OTHER ==
[~2024-05-06] MED LIST changes: +CALTRATE 600 +1 EAC1; +LIPITOR20 MG PO; +REPAGLINIDE0.5 MG PO; +TOPROL XL25 MG PO
== END ==
LOC: RAD 12:41
PROVIDERS: ATTEND Internal Medicine Medical Oncology
DX: R05.9 Cough, unspecified (principal)
CPT/HCPCS: 71046